=== PATIENT | male | born 1945 | race Caucasian/White ===

== ENCOUNTER 2016-06-27 09:36 | Outpatient (CLI) | payer MEDICARE, OTHER | END 2016-06-27 09:37 | disposition home or self-care (01) | DX: C61 Malignant neoplasm of prostate (principal); Z79.899 Other long term (current) drug therapy; R73.9 Hyperglycemia, unspecified; J44.9 Chronic obstructive pulmonary disease, unspecified; I10 Essential (primary) hypertension ==

== ENCOUNTER 2017-04-08 07:18 | Outpatient (CLI) | payer MEDICARE, OTHER ==
[2017-04-08] MEDS ORDERED: IOPAMIDOL-300 100 ML VIAL ONE (07:41)
[2017-04-08] MEDS ORDERED: IOPAMIDOL-300 50 ML VIAL ONE (07:41)
[2017-04-08] MEDS ORDERED: IOPAMIDOL-300 100 ML VIAL IVP ONE (10:21)
[2017-04-08] MEDS ORDERED: IOPAMIDOL-300 50 ML VIAL PO ONE (10:21)
--- NOTE | 2017-04-08 13:02 | CT Report ---
CT ABDOMEN AND PELVIS WITH CONTRAST: 04/08/2017 CLINICAL INDICATION: Right upper quadrant pain. TECHNIQUE: Axial CT images of the abdomen and pelvis were obtained with 100 mL Isovue-300 intravenou sly as well as oral contrast. In accordance with CT protocol optimization, one or more of the following dose reduction techniques w ere utilized for this exam: automated exposure control, adjustment of mA and/or KV based on patient size, or use of iterative reconstructive technique. FINDINGS: Limited evaluation of the lung bases demonstrates calcified hilar and mediastinal lymph no ronaldo. Abdomen: The liver, pancreas, and adrenal glands are unremarkable. A calcified granuloma is seen in the spleen. The gallbladder demonstrates dependent hyperdense material, which may represent sludge or small stones. The kidneys demonstrate cortical and parapelvic cysts. No nephrolithiasis or hydro nephrosis is present. No bowel dilatation, free gas, or free fluid is present. No abdominal adenopa thy is seen. Pelvis: Fiducial markers are seen around the prostate. No pelvic adenopathy or free fluid is presen t. Osseous structures demonstrate degenerative changes. IMPRESSION: POSSIBLE CHOLELITHIASIS OR HYPERDENSE SLUDGE WITHIN THE GALLBLADDER LUMEN. INCIDENTAL R ENAL CYSTS. JOB #: [id number] EXT JOB #:[id number]
== END 2017-04-08 07:19 | disposition home or self-care (01) ==
LOC: DI 07:18
PROVIDERS: ATTEND Internal Medicine
DX: R10.31 Right lower quadrant pain (principal)
CPT/HCPCS: 74177; Q9967

== ENCOUNTER 2017-07-25 09:36 | Outpatient (CLI) | payer MEDICARE, OTHER ==
[2017-07-25 10:11] LABS: BASOPHILS % (AUTO) 0.3 %; EOSINOPHILS # (AUTO) 0.1 10^3/uL (0.0-0.7); EOSINOPHILS % (AUTO) 2.3 %; HGB - HEMOGLOBIN 14.9 g/dL (14.0-18.0); LYMPHOCYTES # (AUTO) 1.4 10^3/uL (1.5-3.5); LYMPHOCYTES % (AUTO) 27.7 %; MEAN CORPUSCULAR HGB CONC 33.7 g/dL (32.0-36.0); MEAN CORPUSCULAR VOLUME 85.9 fL (80.0-94.0); MEAN PLATELET VOLUME 8.7 fL (7.4-11.4); MONOCYTES # (AUTO) 0.5 10^3/uL (0.0-1.0); MONOCYTES % (AUTO) 9.9 %; NEUTROPHILS % (AUTO) 59.8 %; PLT - PLATELET COUNT 219 10^3/uL (130-450); RED BLOOD COUNT 5.14 10^6/uL (4.70-6.10); RED CELL DISTRIBUTION WIDTH 13.7 % (12.0-15.0); WHITE BLOOD COUNT 5.1 x10^3/uL (4.8-10.8)
[2017-07-25 10:22] LABS: ALBUMIN/GLOBULIN RATIO 1.3 (1.0-2.2); ALKALINE PHOSPHATASE 53 IU/L (42-121); ALT ALANINE AMINOTRANSFERASE 16 IU/L (10-60); AST ASPARTATE AMINOTRANSFERASE 22 IU/L (10-42); BILIRUBIN,TOTAL 0.7 mg/dL (0.2-1.0); BUN - BLOOD UREA NITROGEN 17 mg/dL (6-20); CALCIUM 9.3 mg/dL (8.5-10.3); CARBON DIOXIDE - CO2 27 mmol/L (21-32); CHLORIDE 98 mmol/L (101-111); CHOL/HDL RATIO 3.4 (<5.0); CHOLESTEROL 209 mg/dL; CREATININE 1.2 mg/dL (0.6-1.2); GFR - MDRD 59 (>89); GLUCOSE 104 mg/dL (70-100); HDL CHOLESTEROL 61 mg/dL; LDL CHOLESTEROL,CALCULATED 126 mg/dL; LDL/HDL RATIO 2.1 (<3.6); SODIUM 136 mmol/L (135-145); TOTAL PROTEIN 7.1 g/dL (6.7-8.2); VLDL CHOLESTEROL 22 mg/dL
[2017-07-25 10:27] LABS: HEMOGLOBIN A1C 0.67 g/dL
== END 2017-07-25 09:37 | disposition home or self-care (01) ==
LOC: LAB 09:36
PROVIDERS: ATTEND Internal Medicine
DX: I10 Essential (primary) hypertension (principal); J44.9 Chronic obstructive pulmonary disease, unspecified; C61 Malignant neoplasm of prostate; Z79.899 Other long term (current) drug therapy; E87.6 Hypokalemia; R73.01 Impaired fasting glucose
CPT/HCPCS: 36415; 80053; 80061; 83036; 83721; 84443; 85025

== ENCOUNTER 2017-08-15 21:03 | Emergency (ER) | payer MEDICARE, OTHER ==
[2017-08-16 00:17] LABS: BILIRUBIN,URINE NEGATIVE (NEGATIVE); GLUCOSE, URINE (UA) NEGATIVE (NEGATIVE); KETONES,URINE (UA) NEGATIVE (NEGATIVE); LEUKOCYTE ESTERASE, URINE NEGATIVE (NEGATIVE); NITRITE,URINE NEGATIVE (NEGATIVE); OCCULT BLOOD,URINE MODERATE (NEGATIVE); PH,URINE 5.5 PH (5.0-7.5); PROTEIN,URINE NEGATIVE (NEGATIVE); UROBILINOGEN,URINE 0.2 (NORMAL) E.U./dL (NORMAL)
[2017-08-16 00:20] LABS: CLARITY,URINE CLEAR (CLEAR)
[2017-08-16 00:26] LABS: BACTERIA,URINE None Seen /HPF (None Seen); MUCUS,URINE Moderate Strands; SQUAMOUS EPITHELIAL CELL,UR NONE SEEN (<= Few)
--- NOTE | 2017-08-16 00:39 | ED Physician Documentation ---
PD HPI BACK PAIN - Stated complaint Stated Complaint: LOW BACK PX/RED FACE - Chief complaint Chief Complaint: Back Pain - History obtained from History obtained from: Patient - History of Present Illness Timing - onset: Chronic Timing - details: Gradual onset Pain level now: 8 Location: Lower, Right Quality: Pain, Similar to prior episodes Associated symptoms: No: Fever, Weakness, Numbness, Incontinent of urine, Unable to urinate, Hematuria, Incontinent of stool Improves with: Rest Worsened by: Movement Similar symptoms before: Diagnosis (has had pain in the same area for several months, but worse today. H/O bone lesion in this same area (right bony pelvis) that was subsequently biopsied and results led to diagnosis of metastatic prostate CA) Recently seen: Not recently seen - Additional information Additional information: chronic right low back and right bony pelvis pain which is worse over past 1-2 days without apparent precipitating event or injury Review of Systems Constitutional: denies: Fever, Chills, Sweats GI: denies: Abdominal Pain : denies: Dysuria, Frequency, Unable to Void, Incontinent Musculoskeletal: reports: Back pain, Pain with weight bearing Neurologic: denies: Focal weakness, Numbness PD PAST MEDICAL HISTORY - Past Medical History Past Medical History: Yes Cardiovascular: Hypertension, Murmur Respiratory: None Neuro: None Endocrine/Autoimmune: None GI: None : None HEENT: None Psych: None Musculoskeletal: None Derm: None Other Past Medical History: Prostate cancer - Past Surgical History Past Surgical History: Yes HEENT: Tonsil/Adenoidectomy - Present Medications Home Medications: Ambulatory Orders Medication Instructions Recorded Confirmed Calcium Carbonate/Vitamin D3 1 tab PO DAILY 01/02/16 06/10/17 [Calcium 600-Vit D3 400 Tablet] Potassium Chloride [K-Dur] 20 meq PO DAILY 01/02/16 06/10/17 Tamsulosin [Flomax] 0.4 mg PO DAILY 01/02/16 06/10/17 hydroCHLOROthiazide 25 mg PO DAILY 01/02/16 06/10/17 [Hydrochlorothiazide] oxyCODONE [Roxicodone] 5 mg PO Q6H PRN #14 tablet 08/16/17 - Allergies Allergies/Adverse Reactions: Allergies Allergy/AdvReac Type Severity Reaction Status Date / Time No Known Drug Allergies Allergy Verified 08/15/17 23:55 - Social History Does the pt smoke?: No Smoking Status: Never smoker Does the pt drink ETOH?: No Does the pt have substance abuse?: No - POLST Patient has POLST: No PD ED PE NORMAL - Vitals Vital signs reviewed: Yes - General General: Alert and oriented X 3, No acute distress (NAD at rest, appears uncomfortable (mild/moderate pain) with movement involving low back or standing) , Well developed/nourished - Back Back: No CVA TTP, No spinal TTP - Derm Derm: Normal color, Warm and dry - Extremities Extremities: No edema Results - Vitals Vitals: Oxygen O2 Source Room air - Labs Labs: Laboratory Tests 08/16/17 00:08 Urine Color YELLOW Urine Clarity CLEAR Urine pH 5.5 Ur Specific [place] 1.025 Urine Protein NEGATIVE Urine Glucose (UA) NEGATIVE Urine Ketones NEGATIVE Urine Occult Blood MODERATE H Urine Nitrite NEGATIVE Urine Bilirubin NEGATIVE Urine Urobilinogen 0.2 (NORMAL) Ur Leukocyte Esterase NEGATIVE Urine RBC 6-10 H Urine WBC 0-3 Ur Squamous Epith Cells NONE SEEN Urine Bacteria None Seen Urine Mucus Moderate Strands Ur Microscopic Review INDICATED Urine Culture Comments NOT INDICATED - Rads (name of study) pelvis xray Radiology: Prelim report reviewed, See rad report PD MEDICAL DECISION MAKING - ED course Complexity details: reviewed results, re-evaluated patient, considered differential, d/w patient Departure - Departure Disposition: 01 Home, Self Care Clinical Impression: Back pain Condition: Good Instructions: NARCOTIC, Oral, ED Acute Pain [facility] Follow-Up: Gretchen Cedeno MD [Primary Care Provider] - Prescriptions: oxyCODONE [Roxicodone] 5 mg PO Q6H PRN #14 tablet PRN Reason: Pain Discharge Date/Time: 08/16/17 02:31
[2017-08-16] MEDS ORDERED: HYDROmorphone 1 MG/ML CARPUJECT IM STA (00:54)
[2017-08-16 01:43] VITALS: BP 96/49
--- NOTE | 2017-08-16 02:08 | XRAY Report ---
EXAM: PELVIS RADIOGRAPHY EXAM DATE: 08/16/2017 01:01 AM. CLINICAL HISTORY: Right bony pelvic pain. COMPARISON: None. TECHNIQUE: 1 view. FINDINGS: Bones: No fracture seen. No focal area of bone destruction. Joints: No dislocation seen. Joints are relatively well preserved for age. Soft Tissues: Small metallic densities in the area of the prostate. IMPRESSION: 1. No acute abnormality seen in the pelvis. [facility] Referring Provider Line: [phone] SITE ID: [id number]
--- NOTE | 2017-08-16 02:08 | XRAY Preliminary Report ---
Exam: XR PELVIS 1 VIEW IMPRESSION: 1. No acute abnormality seen in the pelvis. [facility] SITE ID: [id number]
== END 2017-08-16 02:31 | disposition home or self-care (01) ==
LOC: ED 21:03
DX: M54.9 Dorsalgia, unspecified (principal); C61 Malignant neoplasm of prostate; I10 Essential (primary) hypertension
CPT/HCPCS: 72170; 81001; 96372; 99283; J1170; 81003; 87086

== ENCOUNTER 2017-08-20 10:57 | Day surgery (SDC) | payer MEDICARE, OTHER ==
[2017-08-20] MEDS ORDERED: LACTATED RINGERS 1,000 ML IV ONE (11:55)
[2017-08-20] MEDS ORDERED: BENZOCAINE/TETRACAINE/BUTAMBEN SPRAY 56 GM TOP ONE (12:56)
[2017-08-20] MEDS ORDERED: fentaNYL 100 MCG/2 ML VIAL IVP ONE (13:05)
[2017-08-20] MEDS ORDERED: MIDAZOLAM 2 MG/2 ML VIAL IVP ONE (13:05)
[2017-08-20 13:54] VITALS: BP 132/76
== END 2017-08-20 10:58 | disposition home or self-care (01) ==
LOC: SDS 10:57
PROVIDERS: ATTEND Surgery
PROC: 0DB68ZX Excision of Stomach, Via Natural or Artificial Opening Endoscopic, Diagnostic (ICD-10-PCS; 2017-08-20)
PROC: 0DB38ZX Excision of Lower Esophagus, Via Natural or Artificial Opening Endoscopic, Diagnostic (ICD-10-PCS; 2017-08-20)
PROC: 0DB98ZX Excision of Duodenum, Via Natural or Artificial Opening Endoscopic, Diagnostic (ICD-10-PCS; principal; 2017-08-20 12:15)
DX: R10.13 Epigastric pain (principal); K44.9 Diaphragmatic hernia without obstruction or gangrene; I10 Essential (primary) hypertension; Z87.891 Personal history of nicotine dependence
CPT/HCPCS: 43239; A9270; J7120

== ENCOUNTER 2017-08-23 20:27 | Inpatient (IN) | payer MEDICARE, OTHER ==
[2017-08-23] MEDS ORDERED: MORPHINE 10 MG/ML VIAL IVP STA (21:22)
[2017-08-23] MEDS ORDERED: SODIUM CHLORIDE 0.9% 1,000 ML IV ONE (21:22)
[2017-08-23] MEDS ORDERED: ONDANSETRON 4 MG/2 ML VIAL IVP STA (21:48)
--- NOTE | 2017-08-23 21:48 | ED Physician Documentation ---
History of Present Illness - Stated complaint Stated Complaint: NAUSEA/LOWER BACK PAIN - Chief complaint Chief Complaint: Abd Pain - History obtained from History obtained from: Patient, Family - History of Present Illness Timing: Today - Additonal information Additional information: Patient is a 72 year old male with a history of metastatic prostate CA who is presenting to the emergency department for low back pain, nausea, fever of 102. Patient is not on chemotherapy but every 3-4 months he gets hormone therapy. Patient also recently had an upper endoscopy that revealed a hiatal hernia and gastritis. Patient denies any vomiting at this time. Review of Systems Constitutional: reports: Fever, Myalgias Eyes: reports: Reviewed and negative Ears: reports: Reviewed and negative Nose: reports: Reviewed and negative Throat: reports: Reviewed and negative Cardiac: denies: Chest pain / pressure, Palpitations Respiratory: reports: Dyspnea, Cough GI: reports: Nausea. denies: Vomiting, Constipation, Diarrhea : reports: Hesitancy Skin: denies: Rash, Lesions Musculoskeletal: reports: Back pain. denies: Neck pain, Extremity pain Neurologic: reports: Generalized weakness. denies: Focal weakness Immunocompromised: denies: Immunocompromised PD PAST MEDICAL HISTORY - Past Medical History Past Medical History: Yes Cardiovascular: Hypertension, Murmur Respiratory: None Neuro: None Endocrine/Autoimmune: None GI: GERD : Other HEENT: None Psych: None Musculoskeletal: Chronic back pain Derm: None Other Past Medical History: Prostate cancer - Past Surgical History Past Surgical History: Yes General: EGD, Other HEENT: Tonsil/Adenoidectomy - Present Medications Home Medications: Ambulatory Orders Medication Instructions Recorded Confirmed Calcium Carbonate/Vitamin D3 1 tab PO DAILY 01/02/16 08/20/17 [Calcium 600-Vit D3 400 Tablet] Potassium Chloride [K-Dur] 20 meq PO DAILY 01/02/16 08/20/17 Tamsulosin [Flomax] 0.4 mg PO DAILY 01/02/16 08/20/17 hydroCHLOROthiazide 25 mg PO DAILY 01/02/16 08/20/17 [Hydrochlorothiazide] oxyCODONE [Roxicodone] 5 mg PO Q6H PRN #14 tablet 08/16/17 08/20/17 - Allergies Allergies/Adverse Reactions: Allergies Allergy/AdvReac Type Severity Reaction Status Date / Time No Known Drug Allergies Allergy Verified 08/19/17 14:42 - Social History Does the pt smoke?: No Smoking Status: Never smoker Does the pt drink ETOH?: No Does the pt have substance abuse?: No - Immunizations Immunizations are current?: Yes - POLST Patient has POLST: No PD ED PE NORMAL - Vitals Vital signs reviewed: Yes - General General: Alert and oriented X 3 - HEENT HEENT: Atraumatic - Neck Neck: No JVD - Cardiac Cardiac: RRR - Abdomen Abdomen: Soft - Derm Derm: Normal color PD ED PE EXPANDED - General General: Alert - HEENT HEENT: Dry mucous membranes - Respiratory Respiratory: Decreased breath sounds, Right lower lobe, Left lower lobe - Back Back: Soft tissue tenderness - Extremities Extremities: No: Pedal edema bilateral Results - Vitals Vitals: Vital Signs - 24 hr 08/23/17 20:34 Temperature 36.7 C Heart Rate 97 Respiratory 18 Rate Blood Pressure 127/76 O2 Saturation 94 Oxygen O2 Source Room air - Labs Labs: Laboratory Tests 08/23/17 08/23/17 08/23/17 21:35 21:40 21:40 WBC 8.8 RBC 4.39 L Hgb 12.7 L Hct 36.7 L MCV 83.5 MCH 28.9 MCHC 34.7 RDW 13.3 Plt Count 271 MPV 7.9 Neut # 7.1 H Lymph # 0.5 L [place] # 1.2 H Eos # 0.0 Baso # 0.0 Absolute Nucleated RBC 0.00 Nucleated RBC % 0.0 Sodium 125 L Potassium 2.8 L Chloride 86 L Carbon Dioxide 28 Anion Gap 11.0 BUN 10 Creatinine 1.0 Estimated GFR (MDRD) 73 L Glucose 119 H Lactic Acid Calcium 7.5 L Total Bilirubin 0.8 AST 30 ALT 20 Alkaline Phosphatase 66 Total Protein 6.7 Albumin 2.9 L Globulin 3.8 Albumin/Globulin Ratio 0.8 L Lipase 20 L Urine Color YELLOW Urine Clarity HAZY Urine pH 6.5 Ur Specific [place] 1.015 Urine Protein TRACE Urine Glucose (UA) NEGATIVE Urine Ketones 40 H Urine Occult Blood LARGE H Urine Nitrite NEGATIVE Urine Bilirubin NEGATIVE Urine Urobilinogen 1 (NORMAL) Ur Leukocyte Esterase NEGATIVE Urine RBC 6-10 H Urine WBC 0-3 Ur Squamous Epith Cells RARE Squamous Urine Bacteria Rare Urine Mucus Few Strands Ur Microscopic Review INDICATED Urine Culture Comments NOT INDICATED Influenza A (Rapid) Influenza B (Rapid) Influenza Types A,B Ag 08/23/17 08/23/17 21:40 21:50 WBC RBC Hgb Hct MCV MCH MCHC RDW Plt Count MPV Neut # Lymph # [place] # Eos # Baso # Absolute Nucleated RBC Nucleated RBC % Sodium Potassium Chloride Carbon Dioxide Anion Gap BUN Creatinine Estimated GFR (MDRD) Glucose Lactic Acid 1.2 Calcium Total Bilirubin AST ALT Alkaline Phosphatase Total Protein Albumin Globulin Albumin/Globulin Ratio Lipase Urine Color Urine Clarity Urine pH Ur Specific [place] Urine Protein Urine Glucose (UA) Urine Ketones Urine Occult Blood Urine Nitrite Urine Bilirubin Urine Urobilinogen Ur Leukocyte Esterase Urine RBC Urine WBC Ur Squamous Epith Cells Urine Bacteria Urine Mucus Ur Microscopic Review Urine Culture Comments Influenza A (Rapid) Negative Influenza B (Rapid) Negative Influenza Types A,B Ag - - Rads (name of study) chest x-ray Radiology: Final report received (right sided infiltrate) PD MEDICAL DECISION MAKING - ED course Complexity details: reviewed old records, reviewed results, re-evaluated patient , considered differential, d/w patient, d/w family ED course: Patient was seen and examined at bedside. IV access was gained, labs were drawn including cultures. urine was collected. chest x-ray was performed and showed a right sided pneumonia. Patient had an elevated pneumonia severity index score and required inpatient admission. Patient was started on rocephin and azithromycin. Case was discussed with the hospitalist and patient was admitted for further evaluation and care. Departure - Departure Disposition: [facility] DC/Xfda Clinical Impression: Pneumonia Condition: Stable Discharge Date/Time: 08/23/17 23:27
[2017-08-23 21:59] LABS: BASOPHILS % (AUTO) 0.3 %; HGB - HEMOGLOBIN 12.7 g/dL (14.0-18.0); LYMPHOCYTES # (AUTO) 0.5 10^3/uL (1.5-3.5); LYMPHOCYTES % (AUTO) 5.8 %; MEAN CORPUSCULAR HEMOGLOBIN 28.9 pg (27.0-31.0); MEAN CORPUSCULAR HGB CONC 34.7 g/dL (32.0-36.0); MEAN CORPUSCULAR VOLUME 83.5 fL (80.0-94.0); MEAN PLATELET VOLUME 7.9 fL (7.4-11.4); MONOCYTES # (AUTO) 1.2 10^3/uL (0.0-1.0); MONOCYTES % (AUTO) 13.2 %; NEUTROPHILS # (AUTO) 7.1 10^3/uL (1.5-6.6); NEUTROPHILS % (AUTO) 80.7 %; PLT - PLATELET COUNT 271 10^3/uL (130-450); RED BLOOD COUNT 4.39 10^6/uL (4.70-6.10); RED CELL DISTRIBUTION WIDTH 13.3 % (12.0-15.0); WHITE BLOOD COUNT 8.8 x10^3/uL (4.8-10.8)
[2017-08-23 22:09] LABS: CLARITY,URINE HAZY (CLEAR); GLUCOSE, URINE (UA) NEGATIVE (NEGATIVE); KETONES,URINE (UA) 40 mg/dL (NEGATIVE); LEUKOCYTE ESTERASE, URINE NEGATIVE (NEGATIVE); NITRITE,URINE NEGATIVE (NEGATIVE); OCCULT BLOOD,URINE LARGE (NEGATIVE); PH,URINE 6.5 PH (5.0-7.5); PROTEIN,URINE TRACE mg/dL (NEGATIVE); UROBILINOGEN,URINE 1 (NORMAL) E.U./dL (NORMAL)
[2017-08-23 22:10] LABS: BILIRUBIN,URINE NEGATIVE (NEGATIVE); ICTOTEST,URINE NEGATIVE
[2017-08-23 22:12] LABS: BACTERIA,URINE Rare /HPF (None Seen); MUCUS,URINE Few Strands; SQUAMOUS EPITHELIAL CELL,UR RARE Squamous (<= Few)
[2017-08-23 22:14] LABS: ALBUMIN 2.9 g/dL (3.2-5.5); ALBUMIN/GLOBULIN RATIO 0.8 (1.0-2.2); BILIRUBIN,TOTAL 0.8 mg/dL (0.2-1.0); CALCIUM 7.5 mg/dL (8.5-10.3); TOTAL PROTEIN 6.7 g/dL (6.7-8.2)
--- NOTE | 2017-08-23 22:15 | XRAY Report ---
EXAM: CHEST RADIOGRAPHY EXAM DATE: 08/23/2017 10:02 PM. CLINICAL HISTORY: Fever, abd pain. COMPARISON: None. TECHNIQUE: 1 view. FINDINGS: Lungs/Pleura: Patchy infiltration in the right base with possible involvement of lateral left base. N o consolidation, effusion, or pneumothorax. Mediastinum: Within exam limitations, the cardiomediastinal contour is normal. Other: Degenerative changes. IMPRESSION: Right basilar infiltrate with possible involvement of the left base. [facility] Referring Provider Line: [phone] SITE ID: [id number]
[2017-08-23] MEDS ORDERED: cefTRIAXone 1 GM in SODIUM CHLORIDE 0.9% MINIBAG 100 ML IV STA (22:30)
[2017-08-23] MEDS ORDERED: AZITHROMYCIN INJ 500 MG in SODIUM CHLORIDE 0.9% 250 ML IV STA (22:30)
[2017-08-23] MEDS ORDERED: oxyCODONE 5 MG TABLET PO PRN ×2 (22:55)
[2017-08-23] MEDS ORDERED: ACETAMINOPHEN 325 MG TABLET PO PRN (22:55)
[2017-08-23] MEDS ORDERED: PROMETHAZINE 25 MG/1 ML VIAL IM PRN (22:55)
[2017-08-23] MEDS ORDERED: SODIUM CHLORIDE FLUSH 0.9% 10 ML SYRINGE IVP PRN (22:55)
[2017-08-23] MEDS ORDERED: ONDANSETRON 4 MG/2 ML VIAL IVP PRN (22:55)
[2017-08-23] MEDS ORDERED: ZOLPIDEM 5 MG TABLET PO PRN (22:55)
[2017-08-23] MEDS ORDERED: MORPHINE 2 MG/ML SYRINGE IVP PRN (22:55)
[2017-08-23] MEDS ORDERED: PROCHLORPERAZINE 10 MG/2 ML VIAL IVP PRN (22:55)
[2017-08-23] MEDS ORDERED: POTASSIUM CHLORIDE 20 MEQ TABLET PO SCH (22:59)
[2017-08-24] MEDS: NS W/20 MEQ KCL 1,000 ML IV SCH ×3 (00:36→20:46)
--- NOTE | 2017-08-24 00:43 | HISTORY & PHYSICAL EXAMINATION ---
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 The patient states he was in his normal state of health until the last few days when he has been having increasing low back pain with some mild shortness of breath and mild cough. Today the patient states that he was nauseated and when his checked his temperature he had a fever of 102 Fahrenheit. The patient states that he has been having some issues with his stomach and has had nausea for which he has been worked up by surgery as an outpatient. He recently had a EGD a few days ago which showed the patient has duodenitis but was otherwise negative. The patient denies any chest pain, orthopnea, PND, increased lower extremity swelling or any night sweats. The patient has not been around any sick contacts. The patient was given Tylenol at home by his after he was found to have fever. The patient denies any headaches, blurred vision, runny nose, sore throat, nasal congestion, diarrhea, constipation, urinary frequency, dysuria, muscle aches, joint swelling, recent unintentional weight loss, changes in his appetite , skin rashes or hair loss, neck stiffness, difficulty swallowing or any focal neurologic deficits. On presentation to the emergency department the patient was afebrile, tachycardic with a heart rate of 97 and oxygen saturation was 94% on room air but patient did not appear to be in any respiratory distress nor was he tachypneic. The patient underwent routine lab work which showed no evidence of leukocytosis however patient was hypo-treatment with a sodium of 125 and hypokalemic with a potassium of 2.8. The patient's influenza swab was negative and his urine analysis showed large occult blood and RBCs but was negative for infection. The patient underwent a chest x-ray which revealed a significant right basilar infiltrate with possible involvement of the left base. Given the patient's history of metastatic disease, age, hyponatremia and pneumonia severity index score the patient was admitted to the [facility] for treatment of community-acquired pneumonia. History - Past Medical History Cardiovascular: reports: Hypertension, Murmur Respiratory: reports: None Neuro: reports: None Endocrine/Autoimmune: reports: None GI: reports: GERD : reports: Other HEENT: reports: None Psych: reports: None Musculoskeletal: reports: Chronic back pain Derm: reports: None MRSA Hx?: No Other Past Medical History: Prostate cancer - Past Surgical History General: reports: EGD, Other HEENT: reports: Tonsil/Adenoidectomy - Family & Social History Family History: Mother: (Father of heart attack at the age of 75, mother at the age of 95 of complications from surgery of bowel obstruction) , [place], Father: , Other family: Cancer (Patient's son had AML) Living arrangement: At home Living Situation: With spouse/s.o. Social History Notes: The patient lives in [place], [place] with his . He has been to his for 54 years. The patient is originally from the [facility]. 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 The patient had 3 sons 1 of whom of AML the other 2 are still alive and live in the [facility]. The patient does not smoke cigarettes, he does not drink alcohol and he denies any illicit drug use. - POLST Patient has POLST: No POLST Status: Full Code Meds/Allgy - Home Medications Home Medications: Ambulatory Orders Medication Instructions Recorded Confirmed Calcium Carbonate/Vitamin D3 1 tab PO DAILY 01/02/16 08/20/17 [Calcium 600-Vit D3 400 Tablet] Potassium Chloride [K-Dur] 20 meq PO DAILY 01/02/16 08/20/17 Tamsulosin [Flomax] 0.4 mg PO DAILY 01/02/16 08/20/17 hydroCHLOROthiazide 25 mg PO DAILY 01/02/16 08/20/17 [Hydrochlorothiazide] oxyCODONE [Roxicodone] 5 mg PO Q6H PRN #14 tablet 08/16/17 08/20/17 - Allergies Allergies/Adverse Reactions: Allergies Allergy/AdvReac Type Severity Reaction Status Date / Time No Known Drug Allergies Allergy Verified 08/19/17 14:42 Review of Systems - Other Findings Other Findings: A comprehensive review of systems was performed the pertinent positives and negatives are stated above in the HPI and the remainder of the review of systems is negative. Exam - Vital Signs Reviewed Vital Signs: Yes Vital Signs: Vital Signs x48h Temp Pulse Resp BP Pulse Ox 08/23/17 23:39 37.2 C 71 20 119/63 95 08/23/17 23:15 88 18 110/65 98 - Physical Exam General Appearance: positive: No acute distress, Alert, Other (Mildly confused) Eyes Bilateral: positive: Normal inspection, PERRL, EOMI, No lid inflammation, Conjunctivae nml, No scleral icterus ENT: positive: ENT inspection nml, Pharynx nml, Dry mucous membranes. negative : Purulent nasal drainage, Pharyngeal erythema, Oral lesions Neck: positive: Nml inspection, Thyroid nml, No JVD, Trachea midline. negative : Thyromegaly, Lymphadenopathy (R), Lymphadenopathy (L), Stiff neck, Carotid bruit, Tracheal deviation Respiratory: positive: Chest non-tender, No respiratory distress, Rhonchi ( Right lower lung). negative: Wheezes, Rales Cardiovascular: positive: Regular rate & rhythm, No murmur, No gallop Peripheral Pulses: positive: 2+ Abdomen: positive: Non-tender, No organomegaly, Nml bowel sounds, No distention. negative: Guarding, Rebound, Hepatomegaly Back: positive: Nml inspection. negative: CVA tenderness (R), CVA tenderness (L ) Skin: positive: Color nml, No rash, Warm, Dry. negative: Cyanosis, Diaphoresis , Pallor, Skin rash Extremities: positive: Non-tender, Full ROM, Nml appearance, No pedal edema Neurologic/Psychiatric: positive: CN's nml (2-12), Motor nml, Sensation nml, Mood/affect nml, Disoriented to time Conclusion/Plan - Problem List (1) CAP (community acquired pneumonia) Conclusion/Plan: Patient presented to the emergency department secondary to fever at home. Patient is also been having some mild shortness of breath and cough. Recently the patient has been having issues of abdominal discomfort and nausea that have been ongoing for months and he is recently been seen by surgery for an EGD which revealed duodenitis but no other significant abnormalities. On presentation the patient had stable vital signs but did appear to be slightly dry and given his fever underwent a chest x-ray which revealed a right basilar infiltrate suggesting pneumonia. According to the pneumonia severity index the patient scored 124 points which put him at risk class IV with a 8.2 to 9.3% mortality. And hospitalization was recommended based on this risk. Plan: Patient was started on IV ceftriaxone and azithromycin for treatment of community acquired pneumonia Patient will be given IV fluids given his hyponatremia and the fact he appears to be dehydrated We will give the patient supplementary oxygen as needed Patient will likely need 1-2 days of IV antibiotics before he can be switched to oral antibiotics and discharged home. We will follow up on patient's blood cultures Qualifiers: Laterality: right Lung location: lower lobe of lung Qualified Code(s): J18.1 - Lobar pneumonia, unspecified organism (2) Hyponatremia Conclusion/Plan: Patient has hyponatremia in the setting of pneumonia and appears to be dry on examination. Patient likely has hypovolemic hyponatremia and will be given IV fluids. We will monitor the patient's sodium Hydrochlorothiazide could also be contributing to the hyponatremia therefore it will be held. (3) Hypokalemia Conclusion/Plan: The patient's potassium on presentation is 2.8 this is likely secondary to dehydration and persistent nausea which the patient has been dealing with for some time now. The patient will be given supplemental potassium orally and IV. We will monitor the patient's potassium and continue to replace potassium as needed. (4) Hypertension Conclusion/Plan: The patient does have hypertension and takes hydrochlorothiazide for hypertension. The patient's blood pressure appears to be well controlled on presentation and given that the patient is hyponatremic we will hold his hydrochlorothiazide and monitor his blood pressure while he is hospitalized. We will restart the hydrochlorothiazide if needed. Qualifiers: Hypertension type: essential hypertension Qualified Code(s): I10 - Essential (primary) hypertension (5) Prostate cancer metastatic to bone Conclusion/Plan: Patient has history of prostate cancer with metastasis to the bone. Patient does have chronic pain from the bone metastasis and takes oxycodone at home. While the patient is hospitalized here we will continue his home dose of oxycodone. The patient will follow up outpatient for further treatment for his prostate cancer. - Lab Results Lab results reviewed: Yes Fish Bones: 08/23/17 21:40 08/23/17 21:40 Other Lab Results: Laboratory Results WBC 8.8 x10^3/uL (4.8-10.8) 08/23/17 21:40 RBC 4.39 10^6/uL (4.70-6.10) L 08/23/17 21:40 Hgb 12.7 g/dL (14.0-18.0) L 08/23/17 21:40 Hct 36.7 % (42.0-52.0) L 08/23/17 21:40 MCV 83.5 fL (80.0-94.0) 08/23/17 21:40 MCH 28.9 pg (27.0-31.0) 08/23/17 21:40 MCHC 34.7 g/dL (32.0-36.0) 08/23/17 21:40 RDW 13.3 % (12.0-15.0) 08/23/17 21:40 Plt Count 271 10^3/uL (130-450) 08/23/17 21:40 MPV 7.9 fL (7.4-11.4) 08/23/17 21:40 Neut # 7.1 10^3/uL (1.5-6.6) H 08/23/17 21:40 Lymph # 0.5 10^3/uL (1.5-3.5) L 08/23/17 21:40 [place] # 1.2 10^3/uL (0.0-1.0) H 08/23/17 21:40 Eos # 0.0 10^3/uL (0.0-0.7) 08/23/17 21:40 Baso # 0.0 10^3/uL (0.0-0.1) 08/23/17 21:40 Absolute Nucleated RBC 0.00 x10^3/uL 08/23/17 21:40 Nucleated RBC % 0.0 /100WBC 08/23/17 21:40 Sodium 125 mmol/L (135-145) L 08/23/17 21:40 Potassium 2.8 mmol/L (3.5-5.0) L 08/23/17 21:40 Chloride 86 mmol/L (101-111) L 08/23/17 21:40 Carbon Dioxide 28 mmol/L (21-32) 08/23/17 21:40 Anion Gap 11.0 (6-13) 08/23/17 21:40 BUN 10 mg/dL (6-20) 08/23/17 21:40 Creatinine 1.0 mg/dL (0.6-1.2) 08/23/17 21:40 Estimated GFR (MDRD) 73 (>89) L 08/23/17 21:40 Glucose 119 mg/dL (70-100) H 08/23/17 21:40 Lactic Acid 1.2 mmol/L (0.5-2.2) 08/23/17 21:40 Calcium 7.5 mg/dL (8.5-10.3) L 08/23/17 21:40 Total Bilirubin 0.8 mg/dL (0.2-1.0) 08/23/17 21:40 AST 30 IU/L (10-42) 08/23/17 21:40 ALT 20 IU/L (10-60) 08/23/17 21:40 Alkaline Phosphatase 66 IU/L (42-121) 08/23/17 21:40 Total Protein 6.7 g/dL (6.7-8.2) 08/23/17 21:40 Albumin 2.9 g/dL (3.2-5.5) L 08/23/17 21:40 Globulin 3.8 g/dL (2.1-4.2) 08/23/17 21:40 Albumin/Globulin Ratio 0.8 (1.0-2.2) L 08/23/17 21:40 Lipase 20 U/L (22-51) L 08/23/17 21:40 Urine Color YELLOW 08/23/17 21:35 Urine Clarity HAZY (CLEAR) 08/23/17 21:35 Urine pH 6.5 PH (5.0-7.5) 08/23/17 21:35 Ur Specific [place] 1.015 (1.002-1.030) 08/23/17 21:35 Urine Protein TRACE mg/dL (NEGATIVE) 08/23/17 21:35 Urine Glucose (UA) NEGATIVE mg/dL (NEGATIVE) 08/23/17 21:35 Urine Ketones 40 mg/dL (NEGATIVE) H 08/23/17 21:35 Urine Occult Blood LARGE (NEGATIVE) H 08/23/17 21:35 Urine Nitrite NEGATIVE (NEGATIVE) 08/23/17 21:35 Urine Bilirubin NEGATIVE (NEGATIVE) 08/23/17 21:35 Urine Urobilinogen 1 (NORMAL) E.U./dL (NORMAL) 08/23/17 21:35 Ur Leukocyte Esterase NEGATIVE (NEGATIVE) 08/23/17 21:35 Urine RBC 6-10 /HPF (0-5) H 08/23/17 21:35 Urine WBC 0-3 /HPF (0-3) 08/23/17 21:35 Ur Squamous Epith Cells RARE Squamous (<= Few) 08/23/17 21:35 Urine Bacteria Rare /HPF (None Seen) 08/23/17 21:35 Urine Mucus Few Strands 08/23/17 21:35 Ur Microscopic Review INDICATED 08/23/17 21:35 Urine Culture Comments NOT INDICATED 08/23/17 21:35 Influenza A (Rapid) Negative (Negative) 08/23/17 21:50 Influenza B (Rapid) Negative (Negative) 08/23/17 21:50 Influenza Types A,B Ag - 08/23/17 21:50 - Diagnostic Imaging Results Diagnostic Imaging Results: positive: Final report reviewed Diagnostic Imaging Results Comments: Chest x-ray Impression: 1. Right basilar infiltrate with possible involvement of the left base. Core Measures - Anticipated LOS I expect patient to be DC'd or transferred within 96 hours.: Yes - Issues Hospital Issues and Management Plan: Patient was seen and examined on 08/23/2017 this is a late entry history and physical. - DVT/VTE - Prophylaxis VTE/DVT Prophylaxis med ordered at admit?: Yes
[2017-08-24] MEDS: SODIUM CHLORIDE FLUSH 0.9% 10 ML SYRINGE IVP SCH ×3 (00:57→17:24)
[2017-08-24 05:14] LABS: BASOPHILS % (AUTO) 0.4 %; EOSINOPHILS % (AUTO) 0.2 %; HGB - HEMOGLOBIN 12.3 g/dL (14.0-18.0); LYMPHOCYTES # (AUTO) 0.7 10^3/uL (1.5-3.5); LYMPHOCYTES % (AUTO) 7.9 %; MEAN CORPUSCULAR HEMOGLOBIN 28.5 pg (27.0-31.0); MEAN CORPUSCULAR HGB CONC 33.9 g/dL (32.0-36.0); MEAN CORPUSCULAR VOLUME 84.2 fL (80.0-94.0); MEAN PLATELET VOLUME 7.6 fL (7.4-11.4); MONOCYTES # (AUTO) 1.2 10^3/uL (0.0-1.0); MONOCYTES % (AUTO) 13.8 %; NEUTROPHILS % (AUTO) 77.7 %; PLT - PLATELET COUNT 251 10^3/uL (130-450); RED BLOOD COUNT 4.32 10^6/uL (4.70-6.10); RED CELL DISTRIBUTION WIDTH 13.5 % (12.0-15.0)
[2017-08-24 05:32] LABS: CALCIUM 7.1 mg/dL (8.5-10.3); CREATININE 1.1 mg/dL (0.6-1.2)
[2017-08-24] MEDS: ALBUTEROL NEB 2.5 MG/3 ML INH PRN (08:05)
[2017-08-24] MEDS ORDERED: POTASSIUM CHLORIDE 20 MEQ TABLET PO ONE (08:15)
[2017-08-24] MEDS: SACCHAROMYCES BOULARDII 250 MG CAPSULE PO SCH ×2 (08:26→17:24)
[2017-08-24] MEDS: TAMSULOSIN 0.4 MG CAPSULE PO SCH (08:27)
[2017-08-24] MEDS: ENOXAPARIN 40 MG/0.4 ML SYRINGE SUBQ SCH (08:27)
[2017-08-24] MEDS: CALCIUM CARB (OYSTER SHELL) 500 MG TABLET PO SCH (08:27)
[2017-08-24] MEDS: CHOLECALCIFEROL 400 UNIT TABLET PO SCH (08:27)
[2017-08-24] MEDS: POLYETHYLENE GLYCOL 3350 17 GM PACKET PO SCH (08:27)
[2017-08-24] MEDS: FAMOTIDINE 20 MG TABLET PO SCH (08:27)
[2017-08-24] MEDS: POTASSIUM CHLORIDE 20 MEQ TABLET PO SCH (08:29)
--- NOTE | 2017-08-24 11:52 | PROVIDER PROGRESS NOTE ---
Subjective - Prog Note Date Prog Note Date: 08/24/17 - Subjective Pt reports feeling: Improved Subjective: pt state he feel better, no complaints. No fever, chill, CP, SOB, cough. Current Medications - Current Medications Current Medications: Active Medications Acetaminophen (Tylenol) 650 mg PO Q4HR PRN PRN Reason: Pain 1 to 4 Albuterol () 2.5 mg INH Q4HR PRN PRN Reason: Wheezing Last Admin: 08/24/17 08:05 Dose: 2.5 mg Calcium Carbonate/Glycine (Oysco-500) 500 mg PO DAILY [facility] Last Admin: 08/24/17 08:27 Dose: 500 mg Cholecalciferol (Vitamin D3) 400 unit PO DAILY [facility] Last Admin: 08/24/17 08:27 Dose: 400 unit Enoxaparin Sodium (Lovenox) 40 mg SUBQ DAILY [facility] Last Admin: 08/24/17 08:27 Dose: 40 mg Famotidine (Pepcid) 20 mg PO DAILY [facility] Last Admin: 08/24/17 08:27 Dose: 20 mg Azithromycin 500 mg/ Sodium (Chloride) 250 mls @ 250 mls/hr IV Q24H [facility] Ceftriaxone Sodium 2 gm/ (Sodium Chloride) 100 mls @ 200 mls/hr IV HS [facility] Potassium Chloride/Sodium Chloride (Normal Saline 0.9% W/20 Meq Kcl) 1,000 mls @ 100 mls/hr IV .Q10H [facility] Last Admin: 08/24/17 10:30 Dose: 100 mls/hr Morphine Sulfate (Morphine) 2 mg IVP Q2H PRN PRN Reason: Pain 8 to 10 Ondansetron HCl (Zofran Inj) 4 mg IVP Q6HR PRN PRN Reason: Nausea / Vomiting Oxycodone HCl (Roxicodone) 5 mg PO Q4HR PRN PRN Reason: Pain 5 to 7 Oxycodone HCl (Roxicodone) 10 mg PO Q4HR PRN PRN Reason: Pain 8 to 10 Polyethylene Glycol (Miralax) 17 gm PO DAILY [facility] Last Admin: 08/24/17 08:27 Dose: 17 gm Potassium Chloride (K-Dur) 20 meq PO DAILY [facility] Last Admin: 08/24/17 08:29 Dose: 20 meq Prochlorperazine Edisylate (Compazine Inj) 10 mg IVP Q6HR PRN PRN Reason: Nausea / Vomiting Promethazine HCl (Phenergan Inj) 25 mg IM Q6HR PRN PRN Reason: Nausea / Vomiting Saccharomyces Boulardii (Florastor) 250 mg PO BIDWM [facility] Last Admin: 08/24/17 08:26 Dose: 250 mg Sodium Chloride (Normal Saline Flush 0.9%) 10 ml IVP PRN PRN PRN Reason: NEEDED PER PROVIDER ORDERS Sodium Chloride (Normal Saline Flush 0.9%) 10 ml IVP 0100,0900,1700 [facility] Last Admin: 08/24/17 08:38 Dose: Not Given Tamsulosin HCl (Flomax) 0.4 mg PO DAILY [facility] Last Admin: 08/24/17 08:27 Dose: 0.4 mg Zolpidem Tartrate (Ambien) 5 mg PO QPM PRN PRN Reason: Insomnia Calcium Carbonate/Vitamin D3 [Calcium 600-Vit D3 400 Tablet] 1 tab PO DAILY Potassium Chloride [K-Dur] 20 meq PO DAILY 01/02/16 Tamsulosin [Flomax] 0.4 mg PO DAILY 01/02/16 hydroCHLOROthiazide [Hydrochlorothiazide] 25 mg PO DAILY 01/02/16 Objective - Vital Signs/Intake & Output Reviewed Vital Signs: Yes Vital Signs: Vital Signs x48h Temp Pulse Pulse Resp BP Pulse Ox 08/24/17 08:06 82 20 08/24/17 07:25 37.2 C 73 19 96/58 L 93 Intake & Output: Intake & Output 08/21/17 08/22/17 08/23/17 08/24/17 23:59 23:59 23:59 23:59 Intake Total 100 2300 Balance 100 2300 - Objective General Appearance: positive: No acute distress, Alert. negative: Lethargic Eyes Bilateral: positive: Normal inspection, PERRL, No lid inflammation, Conjunctivae nml ENT: positive: ENT inspection nml, Pharynx nml, No signs of dehydration. negative: Purulent nasal drainage, Pharyngeal erythema, Oral lesions Neck: positive: Nml inspection, Thyroid nml, No JVD, Trachea midline. negative : Thyromegaly, Lymphadenopathy (R), Lymphadenopathy (L), Stiff neck, Carotid bruit, Swelling/bruising, Tracheal deviation Respiratory: positive: Chest non-tender, No respiratory distress, Breath sounds nml. negative: Wheezes, Rales, Rhonchi Cardiovascular: positive: Regular rate & rhythm, No murmur, No gallop. negative : Irregularly irregular, Extrasystoles, Tachycardia, Bradycardia, Systolic murmur, Diastolic murmur Peripheral Pulses: 2+ Radial (R), 2+ Radial (L), 2+ Dorsalis pedis (R), 2+ Dorsalis pedis (L) Abdomen: positive: Non-tender, No organomegaly, Nml bowel sounds, No distention. negative: Tenderness, Guarding, Rebound Back: positive: Nml inspection. negative: CVA tenderness (R), CVA tenderness (L ) Skin: positive: Color nml, No rash, Warm, Dry. negative: Cyanosis, Diaphoresis , Pallor Extremities: positive: Non-tender, Full ROM, Nml appearance. negative: Calf tenderness, Joint swelling, Cher's sign/cords Neurologic/Psychiatric: positive: Oriented x3, Motor nml, Sensation nml. negative: Weakness, Sensory loss, Facial droop, Slurred/abnml speech, Depressed mood/affect - Lab Results Fish Bones: 08/24/17 04:55 08/24/17 04:55 Other Labs: Lab Results x24hrs 08/24/17 08/24/17 Range/Units 04:55 04:55 WBC 9.0 (4.8-10.8) x10^3/uL RBC 4.32 L (4.70-6.10) 10^6/uL Hgb 12.3 L (14.0-18.0) g/dL Hct 36.4 L (42.0-52.0) % MCV 84.2 (80.0-94.0) fL MCH 28.5 (27.0-31.0) pg MCHC 33.9 (32.0-36.0) g/dL RDW 13.5 (12.0-15.0) % Plt Count 251 (130-450) 10^3/uL MPV 7.6 (7.4-11.4) fL Neut # 7.0 H (1.5-6.6) 10^3/uL Lymph # 0.7 L (1.5-3.5) 10^3/uL [place] # 1.2 H (0.0-1.0) 10^3/uL Eos # 0.0 (0.0-0.7) 10^3/uL Baso # 0.0 (0.0-0.1) 10^3/uL Absolute Nucleated RBC 0.00 x10^3/uL Nucleated RBC % 0.0 /100WBC Sodium 129 L (135-145) mmol/L Potassium 3.2 L (3.5-5.0) mmol/L Chloride 93 L (101-111) mmol/L Carbon Dioxide 30 (21-32) mmol/L Anion Gap 6.0 (6-13) BUN 11 (6-20) mg/dL Creatinine 1.1 (0.6-1.2) mg/dL Estimated GFR (MDRD) 65 L (>89) Glucose 112 H (70-100) mg/dL Calcium 7.1 L (8.5-10.3) mg/dL Assessment/Plan - Problem List (1) CAP (community acquired pneumonia) Impression: (1) CAP (community acquired pneumonia) Conclusion/Plan: pt feel better, no fever, chill, cough. WBC is normal, 95% Sats on room air. continue antibiotics daily lab, vital monitor Patient presented to the emergency department secondary to fever at home. Patient is also been having some mild shortness of breath and cough. Recently the patient has been having issues of abdominal discomfort and nausea that have been ongoing for months and he is recently been seen by surgery for an EGD which revealed duodenitis but no other significant abnormalities. On presentation the patient had stable vital signs but did appear to be slightly dry and given his fever underwent a chest x-ray which revealed a right basilar infiltrate suggesting pneumonia. According to the pneumonia severity index the patient scored 124 points which put him at risk class IV with a 8.2 to 9.3% mortality. And hospitalization was recommended based on this risk. Plan: Patient was started on IV ceftriaxone and azithromycin for treatment of community acquired pneumonia Patient will be given IV fluids given his hyponatremia and the fact he appears to be dehydrated We will give the patient supplementary oxygen as needed Patient will likely need 1-2 days of IV antibiotics before he can be switched to oral antibiotics and discharged home. We will follow up on patient's blood cultures Qualifiers: Laterality: right Lung location: lower lobe of lung Qualified Code(s): J18.1 - Lobar pneumonia, unspecified organism (2) Hyponatremia Conclusion/Plan: improved from 125 to 129 continue IVF, daily lab and vital monitor Patient has hyponatremia in the setting of pneumonia and appears to be dry on examination. Patient likely has hypovolemic hyponatremia and will be given IV fluids. We will monitor the patient's sodium Hydrochlorothiazide could also be contributing to the hyponatremia therefore it will be held. (3) Hypokalemia Conclusion/Plan: K3.2 today, continue correct daily lab monitor The patient's potassium on presentation is 2.8 this is likely secondary to dehydration and persistent nausea which the patient has been dealing with for some time now. The patient will be given supplemental potassium orally and IV. We will monitor the patient's potassium and continue to replace potassium as needed. (4) Hypertension Conclusion/Plan: stable, monitor with vital check hold HCTZ now for hyponatremia. explain pt the reason to hold HCTZ The patient does have hypertension and takes hydrochlorothiazide for hypertension. The patient's blood pressure appears to be well controlled on presentation and given that the patient is hyponatremic we will hold his hydrochlorothiazide and monitor his blood pressure while he is hospitalized. We will restart the hydrochlorothiazide if needed. (5) Prostate cancer metastatic to bone Conclusion/Plan: out-pt for further treatment Patient has history of prostate cancer with metastasis to the bone. Patient does have chronic pain from the bone metastasis and takes oxycodone at home. While the patient is hospitalized here we will continue his home dose of oxycodone. The patient will follow up outpatient for further treatment for his prostate cancer. plan d/c tomorrow or after if electrolytic corrected, and pneumonia with PO meds Qualifiers: Laterality: right Lung location: lower lobe of lung Qualified Code(s): J18.1 - Lobar pneumonia, unspecified organism
[2017-08-24] MEDS: CALCIUM CITRATE 250 MG TABLET PO SCH (13:07)
[2017-08-24] MEDS ORDERED: CALCIUM GLUCONATE 1,000 MG in SODIUM CHLORIDE 0.9% 50 ML IV ONE (13:30)
[2017-08-24] MEDS: cefTRIAXone 2 GM in SODIUM CHLORIDE 0.9% MINIBAG 100 ML IV SCH (20:46)
[2017-08-24] MEDS ORDERED: AZITHROMYCIN INJ 500 MG in SODIUM CHLORIDE 0.9% 250 ML IV SCH (22:00)
[2017-08-25] MEDS: SODIUM CHLORIDE FLUSH 0.9% 10 ML SYRINGE IVP SCH ×4 (00:38→23:48)
[2017-08-25 05:03] LABS: BASOPHILS # (AUTO) 0.1 10^3/uL (0.0-0.1); BASOPHILS % (AUTO) 1.2 %; EOSINOPHILS # (AUTO) 0.1 10^3/uL (0.0-0.7); EOSINOPHILS % (AUTO) 1.8 %; HGB - HEMOGLOBIN 11.2 g/dL (14.0-18.0); LYMPHOCYTES # (AUTO) 0.9 10^3/uL (1.5-3.5); LYMPHOCYTES % (AUTO) 13.5 %; MEAN CORPUSCULAR HEMOGLOBIN 28.3 pg (27.0-31.0); MEAN CORPUSCULAR HGB CONC 33.5 g/dL (32.0-36.0); MEAN CORPUSCULAR VOLUME 84.5 fL (80.0-94.0); MEAN PLATELET VOLUME 7.6 fL (7.4-11.4); MONOCYTES # (AUTO) 1.1 10^3/uL (0.0-1.0); NEUTROPHILS # (AUTO) 4.1 10^3/uL (1.5-6.6); NEUTROPHILS % (AUTO) 65.5 %; PLT - PLATELET COUNT 226 10^3/uL (130-450); RED BLOOD COUNT 3.95 10^6/uL (4.70-6.10); RED CELL DISTRIBUTION WIDTH 13.7 % (12.0-15.0); WHITE BLOOD COUNT 6.3 x10^3/uL (4.8-10.8)
[2017-08-25 05:13] LABS: CALCIUM 7.2 mg/dL (8.5-10.3); CREATININE 0.9 mg/dL (0.6-1.2)
[2017-08-25] MEDS: ALBUTEROL NEB 2.5 MG/3 ML INH PRN (07:28)
[2017-08-25] MEDS: NS W/20 MEQ KCL 1,000 ML IV SCH ×3 (07:44→21:33)
[2017-08-25] MEDS: CHOLECALCIFEROL 400 UNIT TABLET PO SCH (08:12)
[2017-08-25] MEDS: ENOXAPARIN 40 MG/0.4 ML SYRINGE SUBQ SCH (08:12)
[2017-08-25] MEDS: CALCIUM CITRATE 250 MG TABLET PO SCH (08:12)
[2017-08-25] MEDS: SACCHAROMYCES BOULARDII 250 MG CAPSULE PO SCH ×2 (08:12→17:08)
[2017-08-25] MEDS: CALCIUM CARB (OYSTER SHELL) 500 MG TABLET PO SCH (08:12)
[2017-08-25] MEDS: FAMOTIDINE 20 MG TABLET PO SCH (08:12)
[2017-08-25] MEDS: TAMSULOSIN 0.4 MG CAPSULE PO SCH (08:13)
[2017-08-25] MEDS: POLYETHYLENE GLYCOL 3350 17 GM PACKET PO SCH (08:13)
[2017-08-25] MEDS: POTASSIUM CHLORIDE 20 MEQ TABLET PO SCH (08:13)
[2017-08-25] MEDS ORDERED: CALCIUM GLUCONATE 1,000 MG in SODIUM CHLORIDE 0.9% 50 ML IV ONE (10:00)
--- NOTE | 2017-08-25 10:29 | PROVIDER PROGRESS NOTE ---
Subjective - Prog Note Date Prog Note Date: 08/25/17 - Subjective Pt reports feeling: Improved Subjective: pt report he feel good, but some concern for last night his elevated temperature even not fever at 37.8 degree. Otherwise pt denies other complaints. plan to d/c home tomorrow. Current Medications - Current Medications Current Medications: Active Medications Acetaminophen (Tylenol) 650 mg PO Q4HR PRN PRN Reason: Pain 1 to 4 Albuterol () 2.5 mg INH Q4HR PRN PRN Reason: Wheezing Last Admin: 08/25/17 07:28 Dose: 2.5 mg Calcium Carbonate/Glycine (Oysco-500) 500 mg PO DAILY [facility] Last Admin: 08/25/17 08:12 Dose: 500 mg Calcium Citrate () 250 mg PO DAILY [facility] Last Admin: 08/25/17 08:12 Dose: 250 mg Cholecalciferol (Vitamin D3) 400 unit PO DAILY [facility] Last Admin: 08/25/17 08:12 Dose: 400 unit Enoxaparin Sodium (Lovenox) 40 mg SUBQ DAILY [facility] Last Admin: 08/25/17 08:12 Dose: 40 mg Famotidine (Pepcid) 20 mg PO DAILY [facility] Last Admin: 08/25/17 08:12 Dose: 20 mg Azithromycin 500 mg/ Sodium (Chloride) 250 mls @ 250 mls/hr IV Q24H [facility] Last Infusion: 08/24/17 22:53 Dose: Infused Ceftriaxone Sodium 2 gm/ (Sodium Chloride) 100 mls @ 200 mls/hr IV HS [facility] Last Infusion: 08/24/17 21:17 Dose: Infused Calcium Gluconate 1,000 mg/ (Sodium Chloride) 60 mls @ 60 mls/hr IV ONCE ONE Stop: 08/25/17 10:59 Last Admin: 08/25/17 09:40 Dose: 60 mls/hr Potassium Chloride/Sodium Chloride (Normal Saline 0.9% W/20 Meq Kcl) 1,000 mls @ 83 mls/hr IV .Q12H3M [facility] Morphine Sulfate (Morphine) 2 mg IVP Q2H PRN PRN Reason: Pain 8 to 10 Ondansetron HCl (Zofran Inj) 4 mg IVP Q6HR PRN PRN Reason: Nausea / Vomiting Oxycodone HCl (Roxicodone) 5 mg PO Q4HR PRN PRN Reason: Pain 5 to 7 Oxycodone HCl (Roxicodone) 10 mg PO Q4HR PRN PRN Reason: Pain 8 to 10 Polyethylene Glycol (Miralax) 17 gm PO DAILY [facility] Last Admin: 08/25/17 08:13 Dose: Not Given Potassium Chloride (K-Dur) 20 meq PO DAILY [facility] Last Admin: 08/25/17 08:13 Dose: 20 meq Prochlorperazine Edisylate (Compazine Inj) 10 mg IVP Q6HR PRN PRN Reason: Nausea / Vomiting Promethazine HCl (Phenergan Inj) 25 mg IM Q6HR PRN PRN Reason: Nausea / Vomiting Saccharomyces Boulardii (Florastor) 250 mg PO BIDWM [facility] Last Admin: 08/25/17 08:12 Dose: 250 mg Sodium Chloride (Normal Saline Flush 0.9%) 10 ml IVP PRN PRN PRN Reason: NEEDED PER PROVIDER ORDERS Sodium Chloride (Normal Saline Flush 0.9%) 10 ml IVP 0100,0900,1700 [facility] Last Admin: 08/25/17 08:13 Dose: Not Given Tamsulosin HCl (Flomax) 0.4 mg PO DAILY [facility] Last Admin: 08/25/17 08:13 Dose: 0.4 mg Zolpidem Tartrate (Ambien) 5 mg PO QPM PRN PRN Reason: Insomnia Calcium Carbonate/Vitamin D3 [Calcium 600-Vit D3 400 Tablet] 1 tab PO DAILY Potassium Chloride [K-Dur] 20 meq PO DAILY 01/02/16 Tamsulosin [Flomax] 0.4 mg PO DAILY 01/02/16 hydroCHLOROthiazide [Hydrochlorothiazide] 25 mg PO DAILY 01/02/16 Objective - Vital Signs/Intake & Output Reviewed Vital Signs: Yes Vital Signs: Vital Signs x48h Pulse Resp 08/25/17 07:32 65 16 Intake & Output: Intake & Output 08/22/17 08/23/17 08/24/17 08/25/17 23:59 23:59 23:59 23:59 Intake Total 100 5523.334 1255 Balance 100 5523.334 1255 - Objective General Appearance: positive: No acute distress, Alert. negative: Lethargic Eyes Bilateral: positive: Normal inspection, PERRL, No lid inflammation, Conjunctivae nml ENT: positive: ENT inspection nml, Pharynx nml, No signs of dehydration. negative: Purulent nasal drainage, Pharyngeal erythema, Oral lesions Neck: positive: Nml inspection, Thyroid nml, No JVD, Trachea midline. negative : Thyromegaly, Lymphadenopathy (R), Lymphadenopathy (L), Stiff neck, Carotid bruit, Swelling/bruising, Tracheal deviation Respiratory: positive: Chest non-tender, No respiratory distress, Breath sounds nml, Wheezes, Rales, Rhonchi Cardiovascular: positive: Regular rate & rhythm, No murmur, No gallop. negative : Irregularly irregular, Extrasystoles, Tachycardia, Bradycardia, JVD present, Systolic murmur, Diastolic murmur Peripheral Pulses: 2+ Radial (R), 2+ Radial (L), 2+ Dorsalis pedis (R), 2+ Dorsalis pedis (L) Abdomen: positive: Non-tender, No organomegaly, Nml bowel sounds, No distention. negative: Tenderness, Guarding, Rebound Back: positive: Nml inspection. negative: CVA tenderness (R), CVA tenderness (L ) Skin: positive: Color nml, No rash, Warm, Dry. negative: Cyanosis, Diaphoresis , Pallor Extremities: positive: Non-tender, Full ROM, Nml appearance. negative: Calf tenderness, Joint swelling, Cher's sign/cords Neurologic/Psychiatric: positive: Oriented x3, Motor nml, Sensation nml. negative: Weakness, Sensory loss, Facial droop, Slurred/abnml speech, Depressed mood/affect - Lab Results Fish Bones: 08/25/17 04:41 08/25/17 04:41 Other Labs: Lab Results x24hrs 08/25/17 08/25/17 Range/Units 04:41 04:41 WBC 6.3 (4.8-10.8) x10^3/uL RBC 3.95 L (4.70-6.10) 10^6/uL Hgb 11.2 L (14.0-18.0) g/dL Hct 33.4 L (42.0-52.0) % MCV 84.5 (80.0-94.0) fL MCH 28.3 (27.0-31.0) pg MCHC 33.5 (32.0-36.0) g/dL RDW 13.7 (12.0-15.0) % Plt Count 226 (130-450) 10^3/uL MPV 7.6 (7.4-11.4) fL Neut # 4.1 (1.5-6.6) 10^3/uL Lymph # 0.9 L (1.5-3.5) 10^3/uL [place] # 1.1 H (0.0-1.0) 10^3/uL Eos # 0.1 (0.0-0.7) 10^3/uL Baso # 0.1 (0.0-0.1) 10^3/uL Absolute Nucleated RBC 0.00 x10^3/uL Nucleated RBC % 0.0 /100WBC Sodium 131 L (135-145) mmol/L Potassium 3.8 (3.5-5.0) mmol/L Chloride 99 L (101-111) mmol/L Carbon Dioxide 28 (21-32) mmol/L Anion Gap 4.0 L (6-13) BUN 11 (6-20) mg/dL Creatinine 0.9 (0.6-1.2) mg/dL Estimated GFR (MDRD) 82 L (>89) Glucose 115 H (70-100) mg/dL Calcium 7.2 L (8.5-10.3) mg/dL Assessment/Plan - Problem List (1) CAP (community acquired pneumonia) Impression: (1) CAP (community acquired pneumonia) Conclusion/Plan: pt had slight elevated temperature 37.6 and 37.8 degree, pt concerns. we will closely monitor, otherwise pt is improved. plan to d/c tomorrow with oral antibiotics. pt feel better, no fever, chill, cough. WBC is normal, 95% Sats on room air. continue antibiotics daily lab, vital monitor Patient presented to the emergency department secondary to fever at home. Patient is also been having some mild shortness of breath and cough. Recently the patient has been having issues of abdominal discomfort and nausea that have been ongoing for months and he is recently been seen by surgery for an EGD which revealed duodenitis but no other significant abnormalities. On presentation the patient had stable vital signs but did appear to be slightly dry and given his fever underwent a chest x-ray which revealed a right basilar infiltrate suggesting pneumonia. According to the pneumonia severity index the patient scored 124 points which put him at risk class IV with a 8.2 to 9.3% mortality. And hospitalization was recommended based on this risk. Plan: Patient was started on IV ceftriaxone and azithromycin for treatment of community acquired pneumonia Patient will be given IV fluids given his hyponatremia and the fact he appears to be dehydrated We will give the patient supplementary oxygen as needed Patient will likely need 1-2 days of IV antibiotics before he can be switched to oral antibiotics and discharged home. We will follow up on patient's blood cultures (2) Hyponatremia Conclusion/Plan: improved to 131, continue IVF with NS improved from 125 to 129 continue IVF, daily lab and vital monitor Patient has hyponatremia in the setting of pneumonia and appears to be dry on examination. Patient likely has hypovolemic hyponatremia and will be given IV fluids. We will monitor the patient's sodium Hydrochlorothiazide could also be contributing to the hyponatremia therefore it will be held. (3) Hypokalemia Conclusion/Plan: resolved K3.2 today, continue correct daily lab monitor The patient's potassium on presentation is 2.8 this is likely secondary to dehydration and persistent nausea which the patient has been dealing with for some time now. The patient will be given supplemental potassium orally and IV. We will monitor the patient's potassium and continue to replace potassium as needed. (4) Hypertension Conclusion/Plan: stable, monitor with vital check hold HCTZ now for hyponatremia. explain pt the reason to hold HCTZ The patient does have hypertension and takes hydrochlorothiazide for hypertension. The patient's blood pressure appears to be well controlled on presentation and given that the patient is hyponatremic we will hold his hydrochlorothiazide and monitor his blood pressure while he is hospitalized. We will restart the hydrochlorothiazide if needed. 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 Patient does have chronic pain from the bone metastasis and takes oxycodone at home. While the patient is hospitalized here we will continue his home dose of oxycodone. The patient will follow up outpatient for further treatment for his prostate cancer. Qualifiers: Laterality: right Lung location: lower lobe of lung Qualified Code(s): J18.1 - Lobar pneumonia, unspecified organism
[2017-08-25] MEDS: AZITHROMYCIN 250 MG TABLET PO SCH (17:56)
[2017-08-25] MEDS: cefTRIAXone 2 GM in SODIUM CHLORIDE 0.9% MINIBAG 100 ML IV SCH (21:33)
[2017-08-26 04:20] LABS: BASOPHILS # (AUTO) 0.1 10^3/uL (0.0-0.1); BASOPHILS % (AUTO) 1.1 %; EOSINOPHILS # (AUTO) 0.2 10^3/uL (0.0-0.7); EOSINOPHILS % (AUTO) 3.4 %; HGB - HEMOGLOBIN 11.9 g/dL (14.0-18.0); LYMPHOCYTES # (AUTO) 0.7 10^3/uL (1.5-3.5); LYMPHOCYTES % (AUTO) 10.3 %; MEAN CORPUSCULAR HEMOGLOBIN 28.6 pg (27.0-31.0); MEAN CORPUSCULAR HGB CONC 33.6 g/dL (32.0-36.0); MEAN CORPUSCULAR VOLUME 85.2 fL (80.0-94.0); MEAN PLATELET VOLUME 7.5 fL (7.4-11.4); MONOCYTES # (AUTO) 0.9 10^3/uL (0.0-1.0); MONOCYTES % (AUTO) 14.1 %; NEUTROPHILS # (AUTO) 4.6 10^3/uL (1.5-6.6); NEUTROPHILS % (AUTO) 71.1 %; PLT - PLATELET COUNT 258 10^3/uL (130-450); RED BLOOD COUNT 4.17 10^6/uL (4.70-6.10); WHITE BLOOD COUNT 6.4 x10^3/uL (4.8-10.8)
[2017-08-26 04:28] LABS: CALCIUM 7.7 mg/dL (8.5-10.3)
--- NOTE | 2017-08-26 07:28 | Discharge Plan ---
Discharge Plan Disposition: 01 Home, Self Care Condition: Stable Prescriptions: Albuterol 2.5 mg INH Q4HR PRN #1 neb PRN Reason: Wheezing Azithromycin [Zithromax] 250 mg PO DAILY #4 tablet Diet: Regular Activity Restrictions: Activity as Tolerated Shower Restrictions: No (fall precaution, caregiver closely monitor) Weight Bearing: Full Weight Instruction Topics: Azithromycin tablets, Albuterol inhalation solution, Hydrochlorothiazide HCTZ capsules or tablets, Pneumonia, Hyponatremia Dc Additional Instructions or Follow Up instructions: May see PCP in 2-3 days, may hold hydrochlorothiazide until see PCP due to hyponatremia. Should symptoms return or worsen, may present ER or call 911 for help. No Smoking: If you smoke, Please STOP! Call for help. Follow-up with: Gretchen Cedeno MD [Primary Care Provider] -
[2017-08-26] MEDS: FAMOTIDINE 20 MG TABLET PO SCH (08:53)
[2017-08-26] MEDS: CHOLECALCIFEROL 400 UNIT TABLET PO SCH (08:54)
[2017-08-26] MEDS: CALCIUM CITRATE 250 MG TABLET PO SCH (08:54)
[2017-08-26] MEDS: TAMSULOSIN 0.4 MG CAPSULE PO SCH (08:54)
[2017-08-26] MEDS: ENOXAPARIN 40 MG/0.4 ML SYRINGE SUBQ SCH (08:54)
[2017-08-26] MEDS: POLYETHYLENE GLYCOL 3350 17 GM PACKET PO SCH (08:54)
[2017-08-26] MEDS: POTASSIUM CHLORIDE 20 MEQ TABLET PO SCH (08:54)
[2017-08-26] MEDS: AZITHROMYCIN 250 MG TABLET PO SCH (08:54)
[2017-08-26] MEDS: SACCHAROMYCES BOULARDII 250 MG CAPSULE PO SCH (08:54)
[2017-08-26] MEDS: CALCIUM CARB (OYSTER SHELL) 500 MG TABLET PO SCH (08:54)
[2017-08-26] MEDS: SODIUM CHLORIDE FLUSH 0.9% 10 ML SYRINGE IVP SCH (08:54)
[2017-08-26 09:07] VITALS: BP 133/78
--- NOTE | 2017-08-26 11:07 | DISCHARGE SUMMARY ---
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 No fever, chill, cough. continue antibiotics course (2) Hyponatremia today Na is 133. hold HCTZ until seen by pt's PCP for hyponatremia. Pt's BP is stable at hospital without HCTZ (3) Hypokalemia resolved (4) Hypertension stable. 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 Daley's HPI on pt as the following: Patient is a 72-year-old gentleman with a past medical history significant for hypertension, prostate cancer with solitary bone metastasis at the suprapubic region status post radiation therapy to the prostate and metastatic bone site on Lupron injections and Zometa every 3 months for maintenance treatment presenting to the emergency department with a chief complaint of fever. The patient states he was in his normal state of health until the last few days when he has been having increasing low back pain with some mild shortness of breath and mild cough. Today the patient states that he was nauseated and when his checked his temperature he had a fever of 102 Fahrenheit. The patient states that he has been having some issues with his stomach and has had nausea for which he has been worked up by surgery as an outpatient. He recently had a EGD a few days ago which showed the patient has duodenitis but was otherwise negative. The patient denies any chest pain, orthopnea, PND, increased lower extremity swelling or any night sweats. The patient has not been around any sick contacts. The patient was given Tylenol at home by his after he was found to have fever. The patient denies any headaches, blurred vision, runny nose, sore throat, nasal congestion, diarrhea, constipation, urinary frequency, dysuria, muscle aches, joint swelling, recent unintentional weight loss, changes in his appetite , skin rashes or hair loss, neck stiffness, difficulty swallowing or any focal neurologic deficits. On presentation to the emergency department the patient was afebrile, tachycardic with a heart rate of 97 and oxygen saturation was 94% on room air but patient did not appear to be in any respiratory distress nor was he tachypneic. The patient underwent routine lab work which showed no evidence of leukocytosis however patient was hypo-treatment with a sodium of 125 and hypokalemic with a potassium of 2.8. The patient's influenza swab was negative and his urine analysis showed large occult blood and RBCs but was negative for infection. The patient underwent a chest x-ray which revealed a significant right basilar infiltrate with possible involvement of the left base. Given the patient's history of metastatic disease, age, hyponatremia and pneumonia severity index score the patient was admitted to the [facility] for treatment of community-acquired pneumonia. - HOSPITAL COURSE Hospital Course: pt was admitted for subjective fever reported at home. Pt was then found to pneumonia and hyponatemia. Pt was treated with antibiotics and gently IVF. after treatment, pt did not have fever, pt has 98% Sats of O2 on room air. Na is 133 today. Pt is prescribed antibiotics to finish pneumonia course. HCTZ is hold for hyponatremia. Pt's BP is stable without HCTZ in the hospital course. - ALLERGIES Allergies/Adverse Reactions: Allergies Allergy/AdvReac Type Severity Reaction Status Date / Time No Known Drug Allergies Allergy Verified 08/19/17 14:42 - MEDICATIONS Home Medications: Ambulatory Orders Medication Instructions Recorded Confirmed Calcium Carbonate/Vitamin D3 1 tab PO DAILY 01/02/16 08/20/17 [Calcium 600-Vit D3 400 Tablet] Potassium Chloride [K-Dur] 20 meq PO DAILY 01/02/16 08/24/17 Tamsulosin [Flomax] 0.4 mg PO DAILY 01/02/16 08/20/17 oxyCODONE [Roxicodone] 5 mg PO Q6H PRN #14 tablet 08/16/17 08/24/17 Albuterol 2.5 mg INH Q4HR PRN #1 neb 08/26/17 Azithromycin [Zithromax] 250 mg PO DAILY #4 tablet 08/26/17 - PHYSICAL EXAM AT DISCHARGE General Appearance: positive: No acute distress, Alert. negative: Lethargic Eyes Bilateral: positive: Normal inspection, PERRL, No lid inflammation, Conjunctivae nml ENT: positive: ENT inspection nml, Pharynx nml, No signs of dehydration. negative: Purulent nasal drainage, Pharyngeal erythema, Oral lesions Neck: positive: Nml inspection, Thyroid nml, No JVD, Trachea midline. negative : Thyromegaly, Lymphadenopathy (R), Lymphadenopathy (L), Stiff neck, Carotid bruit, Swelling/bruising, Tracheal deviation Respiratory: positive: Chest non-tender, No respiratory distress, Breath sounds nml. negative: Wheezes, Rales, Rhonchi Cardiovascular: positive: Regular rate & rhythm, No murmur, No gallop. negative : Irregularly irregular, Extrasystoles, Tachycardia, Bradycardia, JVD present, Systolic murmur, Diastolic murmur Peripheral Pulses: positive: 2+ Abdomen: positive: Non-tender, No organomegaly, Nml bowel sounds, No distention. negative: Tenderness, Guarding, Rebound Back: positive: Nml inspection. negative: CVA tenderness (R), CVA tenderness (L ) Skin: positive: Color nml, No rash, Warm, Dry. negative: Cyanosis, Diaphoresis , Pallor Extremities: positive: Non-tender, Full ROM, Nml appearance. negative: Calf tenderness, Joint swelling, Cher's sign/cords Neurologic/Psychiatric: positive: Oriented x3, Motor nml, Sensation nml. negative: Weakness, Sensory loss, Facial droop, Slurred/abnml speech, Depressed mood/affect - LABS Result Diagrams: 08/26/17 04:04 08/26/17 04:04 - FOLLOW UP Follow Up: May see PCP in 2-3 days, may hold hydrochlorothiazide until see PCP due to hyponatremia. Should symptoms return or worsen, may present ER or call 911 for help. - TIME SPENT Time Spent in Discharge (Minutes): 45
== END 2017-08-26 12:06 | disposition home or self-care (01) | DRG 194 ==
LOC: ED 20:27 → MS3 22:55
PROVIDERS: ADMIT Internal Medicine; ATTEND Nurse Practitioner Gerontology
DX: J18.9 Pneumonia, unspecified organism (principal); J18.1 Lobar pneumonia, unspecified organism; E87.1 Hypo-osmolality and hyponatremia; K44.9 Diaphragmatic hernia without obstruction or gangrene; G89.29 Other chronic pain; M54.9 Dorsalgia, unspecified; C79.51 Secondary malignant neoplasm of bone; C79.9 Secondary malignant neoplasm of unspecified site; R01.1 Cardiac murmur, unspecified; E87.6 Hypokalemia; I10 Essential (primary) hypertension; C61 Malignant neoplasm of prostate; R31.9 Hematuria, unspecified; K29.80 Duodenitis without bleeding; K21.9 Gastro-esophageal reflux disease without esophagitis; Z79.891 Long term (current) use of opiate analgesic; Z79.899 Other long term (current) drug therapy; Z92.3 Personal history of irradiation
CPT/HCPCS: 36415; 71045; 80048; 80053; 81001; 81003; 83605; 83690; 85025; 87040; 87086; 87275; 87276; 94640; 96361; 96374; 96375; 99283; 99284

== ENCOUNTER 2017-08-29 12:08 | Outpatient (CLI) | payer MEDICARE, OTHER ==
[2017-08-29 12:54] LABS: CALCIUM 8.8 mg/dL (8.5-10.3)
== END 2017-08-29 12:09 | disposition home or self-care (01) ==
LOC: LAB 12:08
PROVIDERS: ATTEND Internal Medicine
DX: E87.1 Hypo-osmolality and hyponatremia (principal)
CPT/HCPCS: 36415; 80048

== ENCOUNTER 2017-08-30 14:47 | Outpatient (CLI) | payer MEDICARE, OTHER ==
--- NOTE | 2017-08-30 21:00 | Ultrasound Preliminary Report ---
Exam: US ABDOMEN LIMITED IMPRESSION: 1. 2.1 x 2.0 x 1.7 cm mid right renal mass, highly suspicious for renal cell carcinoma. Dedicated mul tiphase renal CT recommended to further evaluate. 2. No cholelithiasis nor cholecystitis. [facility] SITE ID: [id number]
--- NOTE | 2017-08-30 21:07 | Ultrasound Report ---
EXAM: ABDOMEN ULTRASOUND LIMITED, RUQ EXAM DATE: 08/30/2017 05:04 PM. CLINICAL HISTORY: Epigastric pain. Prostate cancer. Recent diagnosis of pneumonia. COMPARISON: None. TECHNIQUE: Real-time scanning was performed with static images obtained. FINDINGS: Note that this study is compromised due to the patient's body habitus. Liver: Normal in size and echotexture. 14.4 cm. Main portal vein flow: Hepatopetal. Gallbladder: Normal. No stones, wall thickening, or sonographic Felix's sign. Biliary System: CBD measures 4.4 mm. No intrahepatic or extrahepatic ductal dilatation. Other: Right kidney measures 11.8 cm in length. There is a 2.1 x 1.7 x 2.0 cm solid hypoechoic vascular lesion centrally. No right hydronephrosis. 2.2 x 2.1 x 1.7 cm cyst off the superior pole. IMPRESSION: 1. 2.1 x 2.0 x 1.7 cm mid right renal mass, highly suspicious for renal cell carcinoma. Dedicated [facility] tipse renal CT recommended to further evaluate. 2. No cholelithiasis nor cholecystitis. [facility] Referring Provider Line: [phone] SITE ID: [id number]
== END 2017-08-30 14:48 | disposition home or self-care (01) ==
LOC: DI 14:47
PROVIDERS: ATTEND Surgery
DX: N28.89 Other specified disorders of kidney and ureter (principal)
CPT/HCPCS: 76705

== ENCOUNTER 2017-09-06 06:33 | Outpatient (CLI) | payer MEDICARE, OTHER ==
[2017-09-06] MEDS ORDERED: IOPAMIDOL-300 100 ML VIAL ONE (07:56)
[2017-09-06] MEDS ORDERED: IOPAMIDOL-300 100 ML VIAL IVP ONE (08:47)
--- NOTE | 2017-09-06 19:28 | CT Report ---
CT IVP: 09/06/2017 INDICATION: Possible right kidney mass on ultrasound. COMPARISON: Ultrasound 08/30/2017, CT 04/08/2017. TECHNIQUE: Axial CT images of the abdomen were obtained prior to and following 100 mL of contrast, with images obtained in the early arterial, portal venous, and delayed phases. Limited evaluation of the lung bases demonstrates a right lower lobe infiltrate. ABDOMEN: On the unenhanced images, there is no evidence of nephrolithiasis or hydronephrosis. The kidneys demonstrate parapelvic cysts bilaterally. No solid hilar renal mass is identified in the right kidney. Cortical cysts are also present. The liver, spleen, pancreas and adrenal glands are unremarkable. The gallbladder is not dilated. No bowel dilatation, free gas, or free fluid is present. No abdominal adenopathy is seen. PELVIS: Fiducial markers are noted in the prostate. No pelvic adenopathy or free fluid is present. No distal hydroureter or ureterolithiasis is identified. Osseous structures demonstrate degenerative changes. IMPRESSION: 1. PARAPELVIC CYSTS IN THE RIGHT KIDNEY, BUT NO SOLID RENAL MASS IS IDENTIFIED. 2. RIGHT LOWER LOBE INFILTRATE. 3. FIDUCIAL MARKERS IN THE PROSTATE. TD: 09/06/2017 19:27
== END 2017-09-06 06:34 | disposition home or self-care (01) ==
LOC: DI 06:33
PROVIDERS: ATTEND Surgery
DX: R93.5 Abnormal findings on diagnostic imaging of other abdominal regions, including retroperitoneum (principal); N28.89 Other specified disorders of kidney and ureter; N28.1 Cyst of kidney, acquired
CPT/HCPCS: 74178; Q9967

== ENCOUNTER 2018-02-12 05:20 | Emergency (ER) | payer MEDICARE, OTHER ==
--- NOTE | 2018-02-12 05:28 | ED Physician Documentation ---
PD HPI BACK PAIN - Stated complaint Stated Complaint: BACK PAIN - Chief complaint Chief Complaint: Back Pain - History obtained from History obtained from: Patient - History of Present Illness Timing - onset: How many days ago (4) Timing - duration: Days Timing - details: Gradual onset Pain level now: 6 Location: Lower, Left Quality: Pain. No: Spasm Associated symptoms: No: Fever, Weakness, Numbness, Incontinent of urine, Unable to urinate, Hematuria, Incontinent of stool Improves with: Rest Worsened by: Movement Recently seen: Not recently seen - Additional information Additional information: 4 days of gradual onset, waxing and waning left low back pain and left posterior bony pelvis pain. distinctly worse with movement, denies injury. Review of Systems Constitutional: reports: Reviewed and negative GI: reports: Reviewed and negative : denies: Unable to Void, Incontinent Musculoskeletal: reports: Back pain, Pain with weight bearing Neurologic: denies: Focal weakness, Numbness PD PAST MEDICAL HISTORY - Past Medical History Cardiovascular: Hypertension, Murmur Respiratory: None Endocrine/Autoimmune: None GI: GERD : Other HEENT: None Psych: None Musculoskeletal: Chronic back pain Derm: None - Past Surgical History Past Surgical History: Yes General: EGD, Other HEENT: Tonsil/Adenoidectomy - Present Medications Home Medications: Ambulatory Orders Medication Instructions Recorded Confirmed Calcium Carbonate/Vitamin D3 1 tab PO DAILY 01/02/16 12/09/17 [Calcium 600-Vit D3 400 Tablet] Potassium Chloride [K-Dur] 20 meq PO DAILY 01/02/16 12/09/17 Lansoprazole 1 tab PO DAILY 09/09/17 12/09/17 oxyCODONE [Roxicodone] 5 mg PO Q4-6H PRN #20 tablet 02/12/18 - Allergies Allergies/Adverse Reactions: Allergies Allergy/AdvReac Type Severity Reaction Status Date / Time No Known Drug Allergies Allergy Verified 02/12/18 05:29 - Social History Does the pt smoke?: No Smoking Status: Never smoker Does the pt drink ETOH?: No Does the pt have substance abuse?: No - Immunizations Immunizations are current?: Yes - POLST Patient has POLST: No POLST Status: Full Code PD ED PE NORMAL - Vitals Vital signs reviewed: Yes - General General: Alert and oriented X 3, No acute distress (NAD at rest, appears to be in mild painful distress with movement involving low back), Well developed/nourished - Abdomen Abdomen: Soft, Non tender - Back Back: No CVA TTP, No spinal TTP - Derm Derm: Normal color, Warm and dry, No rash - Extremities Extremities: No tenderness to palpate, No edema - Neuro Neuro: No motor deficit, No sensory deficit Results - Vitals Vitals: Vital Signs - 24 hr 02/12/18 05:25 Temperature 36.6 C Heart Rate 61 Respiratory 16 Rate Blood Pressure 134/92 H O2 Saturation 98 Oxygen O2 Source Room air - Rads (name of study) lumbar xrays Radiology: Prelim report reviewed, See rad report pelvis xray Radiology: Prelim report reviewed, See rad report PD MEDICAL DECISION MAKING - ED course Complexity details: reviewed results, re-evaluated patient, considered differential, d/w patient - Sepsis Event Vital Signs: Vital Signs - 24 hr 02/12/18 05:25 Temperature 36.6 C Heart Rate 61 Respiratory 16 Rate Blood Pressure 134/92 H O2 Saturation 98 Oxygen O2 Source Room air Departure - Departure Disposition: 01 Home, Self Care Clinical Impression: Back pain Condition: Good Instructions: NARCOTIC, Oral, ED Neck Back Pain General Follow-Up: Gretchen Cedeno MD [Primary Care Provider] - Prescriptions: oxyCODONE [Roxicodone] 5 mg PO Q4-6H PRN #20 tablet PRN Reason: Pain Discharge Date/Time: 02/12/18 07:02
[2018-02-12 05:29] VITALS: BP 134/92
--- NOTE | 2018-02-12 06:36 | XRAY Report ---
Reason: low back pain Procedure Date: 02/12/2018 Accession Number: [id number] / [id number] Procedure: XR - Lumbar Spine 2 View CPT Code: FULL RESULT: EXAM: LUMBOSACRAL SPINE RADIOGRAPHY EXAM DATE: 02/12/2018 06:30 AM. CLINICAL HISTORY: Low back pain. COMPARISONS: None. TECHNIQUE: 3 views. FINDINGS: Alignment: Mild degenerative levoscoliosis. Bones: Five [id number] lumbar vertebral bodies are present. No fractures or bone lesions. Disks: Moderate degenerative disk disease. Facets: Moderate facet arthropathy. Sacroiliac Joints: Unremarkable. Soft Tissues: Normal. The visualized bowel gas pattern is normal. IMPRESSION: Moderate degenerative changes, with mild degenerative levoscoliosis. No evidence of acute fracture. [facility]
--- NOTE | 2018-02-12 06:38 | XRAY Report ---
Reason: left posterior bony pelvis pain Procedure Date: 02/12/2018 Accession Number: [id number] / [id number] Procedure: XR - Pelvis 1 View CPT Code: FULL RESULT: EXAM: PELVIS RADIOGRAPHY EXAM DATE: 02/12/2018 06:30 AM. CLINICAL HISTORY: Left posterior bony pelvis pain. COMPARISON: PELVIS 1 VIEW 08/16/2017 1:01 AM. TECHNIQUE: 1 view. FINDINGS: Bones: Normal. No fracture or bone lesion. Joints: Moderate osteoarthritis of the hips. Soft Tissues: Fiducial markers in the prostate bed. IMPRESSION: Moderate osteoarthritis. No evidence of acute fracture. RADIA
== END 2018-02-12 07:02 | disposition home or self-care (01) ==
LOC: ED 05:20
DX: M54.9 Dorsalgia, unspecified (principal); G89.29 Other chronic pain; I10 Essential (primary) hypertension
CPT/HCPCS: 72100; 72170; 99283

== ENCOUNTER 2018-08-15 07:44 | Outpatient (CLI) | payer MEDICARE, OTHER ==
[2018-08-15 08:37] LABS: BASOPHILS % (AUTO) 0.6 %; EOSINOPHILS # (AUTO) 0.2 10^3/uL (0.0-0.7); EOSINOPHILS % (AUTO) 3.7 %; HGB - HEMOGLOBIN 14.1 g/dL (14.0-18.0); LYMPHOCYTES # (AUTO) 1.5 10^3/uL (1.5-3.5); LYMPHOCYTES % (AUTO) 22.4 %; MEAN CORPUSCULAR HEMOGLOBIN 28.8 pg (27.0-31.0); MEAN CORPUSCULAR HGB CONC 33.4 g/dL (32.0-36.0); MEAN CORPUSCULAR VOLUME 86.4 fL (80.0-94.0); MEAN PLATELET VOLUME 9.3 fL (7.4-11.4); MONOCYTES # (AUTO) 0.5 10^3/uL (0.0-1.0); MONOCYTES % (AUTO) 8.4 %; NEUTROPHILS # (AUTO) 4.3 10^3/uL (1.5-6.6); NEUTROPHILS % (AUTO) 64.9 %; PLT - PLATELET COUNT 187 10^3/uL (130-450); RED CELL DISTRIBUTION WIDTH 14.5 % (12.0-15.0); WHITE BLOOD COUNT 6.5 x10^3/uL (4.8-10.8)
[2018-08-15 08:58] LABS: HB2 TOTAL 15.6 g/dL; HEMOGLOBIN A1C 0.63 g/dL; HEMOGLOBIN A1C % 5.8 % (4.6-6.2)
[2018-08-15 09:04] LABS: ALBUMIN 3.5 g/dL (3.2-5.5); ALBUMIN/GLOBULIN RATIO 1.2 (1.0-2.2); ALKALINE PHOSPHATASE 48 IU/L (42-121); ALT ALANINE AMINOTRANSFERASE 19 IU/L (10-60); AST ASPARTATE AMINOTRANSFERASE 29 IU/L (10-42); BILIRUBIN,TOTAL 0.6 mg/dL (0.2-1.0); BUN - BLOOD UREA NITROGEN 15 mg/dL (6-20); CALCIUM 8.6 mg/dL (8.5-10.3); CARBON DIOXIDE - CO2 25 mmol/L (21-32); CHLORIDE 104 mmol/L (101-111); CHOL/HDL RATIO 3.4 (<5.0); CHOLESTEROL 195 mg/dL; GFR - MDRD 73 (>89); GLUCOSE 104 mg/dL (70-100); HDL CHOLESTEROL 57 mg/dL; LDL CHOLESTEROL,CALCULATED 123 mg/dL; LDL/HDL RATIO 2.2 (<3.6); SODIUM 137 mmol/L (135-145); TOTAL PROTEIN 6.5 g/dL (6.7-8.2); VLDL CHOLESTEROL 15 mg/dL
== END 2018-08-15 07:45 | disposition home or self-care (01) ==
LOC: LAB 07:44
PROVIDERS: ATTEND Internal Medicine
DX: I10 Essential (primary) hypertension (principal); Z79.899 Other long term (current) drug therapy; J44.9 Chronic obstructive pulmonary disease, unspecified; Z13.6 Encounter for screening for cardiovascular disorders; R73.01 Impaired fasting glucose; C61 Malignant neoplasm of prostate
CPT/HCPCS: 36415; 80053; 80061; 83036; 83721; 84443; 85025

== ENCOUNTER 2019-04-08 09:33 | Outpatient (CLI) | payer MEDICARE, OTHER ==
--- NOTE | 2019-04-09 09:25 | DEXA Report ---
Reason: OSEOPOROSIS Procedure Date: 04/08/2019 Accession Number: [id number] / [id number] Procedure: DEX - Dexa Spine and/or Hip CPT Code: Final Report FULL RESULT: EXAM: Dexa Spine and/or Hip DATE: 04/08/2019 10:08 AM CLINICAL HISTORY: OSTEOPOROSIS TECHNIQUE: Dual energy x-ray absorptiometry (DXA) was performed on a [employer] System. Regions measured are the AP Spine, femoral neck, and if needed forearm. COMPARISON: None. In accordance with the International Society for Clinical Densitometry (ISCD) guidelines, data from previous exams may be reanalyzed using current recommendations and techniques. This is done to allow a more accurate basis for comparison with the current study. FINDINGS: The data for the lumbar spine is as follows: BMD (g/cm/cm) T-SCORE Z-SCORE REGION L1 1.030 -1.1 -1.2 L2 1.093 -1.2 -1.3 L3 1.202 -0.3 -0.4 L4 1.206 -0.3 -0.4 TOTAL 1.134 -0.7 -0.8 NOTE: All evaluable vertebrae are used for classification The data for the hip is as follows: BMD (g/cm/cm) T-SCORE Z-SCORE REGION Neck 0.887 -1.4 -0.5 TOTAL 1.019 -0.6 -0.1 NOTE: The femoral neck or total proximal femur, whichever is lowest, is used for classification. IMPRESSION: THE WHO CLASSIFICATION BASED ON THE INTERNATIONAL REFERENCE STANDARD IS OSTEOPENIA. THE FRACTURE RISK IS INCREASED. RECOMMENDATION: Patients with diagnosis of osteoporosis or osteopenia should have regular bone mineral density assessment. For those eligible for Medicare, routine testing is allowed once every 2 years. Testing frequency can be increased for patients who have rapidly progressing disease or for those who are receiving medical therapy to restore bone mass. COMMENT: World Health Organization (WHO) definitions for osteoporosis and osteopenia: NORMAL BMD: T-score at -1.0 or higher, fracture risk is low OSTEOPENIA BMD: T-score between -1.0 and -2.5, fracture risk is increased. OSTEOPOROSIS BMD: T-score at -2.5 or lower, fracture risk is high. National Osteoporosis Foundation recommends: 1. Obtain adequate dietary calcium (at least 1200 mg per day) and vitamin D (400-800 international units per day). 2. Participate, as appropriate, in regular weightbearing and muscle-strengthening exercise. 3. Avoid tobacco use and reduce alcohol and caffeine intake. 4. For more detailed information see the website at www.NOF.org.
== END 2019-04-08 09:34 | disposition home or self-care (01) ==
LOC: DI 09:33
PROVIDERS: ATTEND Thoracic Surgery (Cardiothoracic Vascular Surgery)
DX: M85.88 Other specified disorders of bone density and structure, other site (principal); C61 Malignant neoplasm of prostate
CPT/HCPCS: 77080

== ENCOUNTER 2019-09-13 11:29 | Emergency (ER) | payer MEDICARE, OTHER ==
--- NOTE | 2019-09-13 13:36 | ED Physician Documentation ---
PD HPI Fall - Stated complaint Stated Complaint: GLF - Chief complaint Chief Complaint: Trauma Ch/Bk - History obtained from History obtained from: Patient - History of Present Illness Mechanism of injury: Tripped Fall distance: Standing position Where injury occurred: Home Timing - onset: Enter time (0900), Today Injury(ies) location: Chest Quality of pain: Pain Associated symptoms: No: LOC, AMS, Amnesia Symptoms improve with: Rest Worsens with: Movement, Palpation Contributing factors: No: Anticoagulated Similar symptoms before: Diagnosis (chest wall contusion) Recently seen: Not recently seen - Additional information Additional information: 74-year-old male was walking his dog who was on a leash the dog pulled him and he fell over an embankment about 6 weeks ago. He did not come in for that fall. Today he was walking back to his shop and tripped over the dog lead and fell onto his right chest wall again. He has some pain there and some difficulty getting a full deep breath. Review of Systems Constitutional: denies: Fever, Chills, Myalgias Eyes: denies: Decreased vision Ears: denies: Ear pain Nose: denies: Congestion Throat: denies: Sore throat Cardiac: reports: Chest pain / pressure. denies: Palpitations Respiratory: denies: Dyspnea, Cough, Wheezing GI: denies: Abdominal Pain, Nausea, Vomiting : denies: Dysuria, Frequency PD PAST MEDICAL HISTORY - Past Medical History Cardiovascular: Hypertension, Murmur Respiratory: None Endocrine/Autoimmune: None GI: GERD : Other HEENT: None Psych: None Musculoskeletal: Chronic back pain Derm: None Other Past Medical History: Prostate cancer - Past Surgical History Past Surgical History: Yes General: EGD, Other HEENT: Tonsil/Adenoidectomy - Present Medications Home Medications: Ambulatory Orders Medication Instructions Recorded Confirmed Calcium Carbonate/Vitamin D3 1 tab PO DAILY 01/02/16 06/15/19 [Calcium 600-Vit D3 400 Tablet] Potassium 99 99 mg PO DAILY 12/15/18 06/15/19 Hydrocodone/Acetaminophen 1 - 2 each PO Q6H PRN #14 tablet 09/13/19 [Hydrocodon-Acetaminophen 5-325] - Allergies Allergies/Adverse Reactions: Allergies Allergy/AdvReac Type Severity Reaction Status Date / Time No Known Drug Allergies Allergy Verified 06/15/19 09:01 - Social History Does the pt smoke?: No Smoking Status: Never smoker Does the pt drink ETOH?: No Does the pt have substance abuse?: No - Immunizations Immunizations are current?: Yes - POLST Patient has POLST: No POLST Status: Full Code PD ED PE NORMAL - Vitals Vital signs reviewed: Yes (hypertensive ) - General General: Alert and oriented X 3, No acute distress, Well developed/nourished - HEENT HEENT: Atraumatic, PERRL, EOMI - Respiratory Respiratory: No respiratory distress, Clear bilaterally, Other (There is point tenderness to the anterior chest wall closer to the sternum. 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 No obvious rib fracture seen.), EMP read indepedently, See rad report PD MEDICAL DECISION MAKING - ED course Complexity details: reviewed old records, reviewed results, re-evaluated patient, considered differential, d/w patient ED course: 74-year-old male with a right chest wall contusion has mild pain to compression of the chest wall and normal vital signs. He has no evidence of hemopneumothorax or rib fracture on plain film. Departure - Departure Disposition: 01 Home, Self Care Clinical Impression: Chest wall contusion Qualifiers: Encounter type: initial encounter Laterality: right Qualified Code(s): S20.211A - Contusion of right front wall of thorax, initial encounter Condition: Stable Instructions: ED Contusion Chest Wall Follow-Up: Moe Yeh MD [Primary Care Provider] - Prescriptions: Hydrocodone/Acetaminophen [Hydrocodon-Acetaminophen 5-325] 1 - 2 each PO Q6H PRN #14 tablet PRN Reason: pain Discharge Date/Time: 09/13/19 14:25
[2019-09-13 13:55] VITALS: BP 143/100
--- NOTE | 2019-09-13 13:55 | XRAY Report ---
Reason: fall R rib contusion anterior Procedure Date: 09/13/2019 Accession Number: [id number] / [id number] Procedure: XR - Ribs w/PA Chest RT CPT Code: Final Report FULL RESULT: EXAM: RIGHT RIB RADIOGRAPHY EXAM DATE: 09/13/2019 01:04 PM. CLINICAL HISTORY: Chest pain post fall. COMPARISON: CHEST 1 VIEW 08/23/2017 9:51 PM. TECHNIQUE: 1 view of the chest and 4 views of the ribs. FINDINGS: Bones: Normal. No fracture or bone lesion. Lungs: Mild atelectatic changes seen at the left base. No gross consolidation noted. Mediastinum: Heart and mediastinal contours are unremarkable. Other: None. IMPRESSION: Mild atelectatic changes at the left base, otherwise unremarkable exam. No obvious rib fracture seen. RADIA
== END 2019-09-13 14:25 | disposition home or self-care (01) ==
LOC: ED 11:29
DX: S20.211A Contusion of right front wall of thorax, initial encounter (principal); W01.0XXA Fall on same level from slipping, tripping and stumbling without subsequent striking against object, initial encounter; Y93.01 Activity, walking, marching and hiking; Y92.008 Other place in unspecified non-institutional (private) residence as the place of occurrence of the external cause; I10 Essential (primary) hypertension
CPT/HCPCS: 99283; 99284

== ENCOUNTER 2020-03-25 08:37 | Outpatient (CLI) | payer MEDICARE, OTHER ==
--- NOTE | 2020-03-25 18:08 | Nuclear Medicine Report ---
PROCEDURE: Bone Whole Body INDICATIONS: PROSTATE CA RADIOPHARMACEUTICAL: 25.7 mCi Tc-99m MDP IV. TECHNIQUE: Delayed whole-body scintigrams were obtained approximately 3-4 hours after intravenous injection of r adiotracer. Anterior and posterior views were acquired from vertex to feet. Additional left and rig ht oblique views of the were obtained. COMPARISON: CT abdomen and pelvis, 03/25/2020. Previous base chest x-ray, 09/13/2019. FINDINGS: There are 3 foci of increased uptake in the right anterior ribs, likely related to traumat ic injury. No lesions are identified in skull, sternum, scapulae, bony pelvis and visualized shafts o f the long bones. Low level increased uptake in the lower cervical spine, thoracic spine and lumbar s pine is most likely in degenerative in nature. Early metastatic disease could be obscured. There are foci of increased periarticular activity in shoulders bilaterally, knees bilaterally, ankles and feet bilaterally, consistent with degenerative/arthritic changes. IMPRESSION: 1. No definitive scintigraphic findings to to suggest osseous metastasis. 2. Foci of increased uptake in the right anterior ribs, compatible with rib fractures. Reviewed by: Madhu Duggan MD on 03/25/2020 6:07 PM PST Approved by: Madhu Duggan MD on 03/25/2020 6:07 PM PST Station ID: [id number]
== END 2020-03-25 08:38 | disposition home or self-care (01) ==
LOC: DI 08:37
PROVIDERS: ATTEND Physician Assistant
DX: C61 Malignant neoplasm of prostate (principal); R10.2 Pelvic and perineal pain
CPT/HCPCS: 78306

== ENCOUNTER 2020-05-26 09:47 | Outpatient (CLI) | payer MEDICARE, OTHER ==
--- OUTSIDE RECORDS SUMMARY | 2020-06-01 01:04 | EXTERNAL MEDICAL SUMMARY RPT | Continuity of Care Document ---
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 2020-02-29 11:00 CHRONIC FATIGUE[facility] 2020-02-29 11:00 OTHER GENERAL SYMPTOMS AND SIGNS [facility] 2020-02-29 11:00 ADVERSE EFFECT OF HORMONES AND [facility] SYNTHETIC SUBSTITUTES, INIT 2020-02-29 11:[address] [facility] STATUS 2020-02-29 11:00 BODY MASS INDEX [BMI] 37.0-37.9, [facility] ADULT 2020-02-29 11:00 LNG TRM (CRNT) USE OF AGNT AFF [facility] ESTROG RECPT ESTROG LEVELS 2020-02-29 11:00 HALFWAY (CURRENT) USE OF [facility] BISPHOSPHONATES 2020-02-29 11:00 OTHER HALFWAY (CURRENT) DRUG [facility] THERAPY 2020-02-29 11:00 PERSONAL HISTORY OF IRRADIATION [facility] 2020-03-25 08:37 MALIGNANT NEOPLASM OF PROSTATE [facility] 2020-03-25 08:37 PELVIC AND PERINEAL PAIN [facility] 2020-03-25 09:00 MALIGNANT NEOPLASM OF PROSTATE [facility] 2020-03-25 11:00 MALIGNANT NEOPLASM OF PROSTATE [facility] 2020-03-25 11:00 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 2020-03-25 11:00 OTHER GENERAL SYMPTOMS AND SIGNS [facility] 2020-03-25 11:00 ADVERSE EFFECT OF HORMONES AND [facility] SYNTHETIC SUBSTITUTES, INIT 2020-03-25 11:[address] 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 2020-05-30 13:00 CHRONIC FATIGUE, UNSPECIFIED [facility] 2020-05-30 13:00 OTHER GENERAL SYMPTOMS AND SIGNS [facility] 2020-05-30 13:00 ADVERSE EFFECT OF HORMONES AND [facility] SYNTHETIC SUBSTITUTES, INIT 2020-05-30 13:[address] 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 2020-05-30 15:00 CHRONIC FATIGUE, UNSPECIFIED [facility] 2020-05-30 15:00 OTHER GENERAL SYMPTOMS AND SIGNS [facility] 2020-05-30 15:00 ADVERSE EFFECT OF HORMONES AND [facility] SYNTHETIC SUBSTITUTES, INIT 2020-05-30 15:[address] 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 2020-05-30 15:00 OTHER METALWORKING INSTRUCTOR (CURRENT) DRUG [facility] THERAPY 2020-05-30 15:00 PERSONAL HISTORY OF IRRADIATION [facility] Allergies date description facility ADHESIVE \T\ TAPE [facility] CODEINE [facility]INS [facility] LATEX [facility] DOXYCYCLINE [facility] AZITHROMYCIN [facility] ER[facility]THROMYCIN [facility] No Known Drug Allergies [facility] No known allergies [facility] ACETAMINOPHEN [facility] ADHESIVE \T\ TAPE [facility] CORTISONE [facility]OFEN [facility] METHOCARBAMOL [facility] NAPROXEN [facility] NO KNOWN ENVIRONMENTAL ALLERGIES [facility] pollen [facility] LOVASTATIN [facility] No Known Medication Allergies [facility] NO ALLERGY INFORMATION AVAILABLE [facility] NSAIDS (NON-STEROIDAL ANTI-INFLAMMATORY DRUG) [facility] PENICILLINS [facility] SULFA (SULFONAMIDE ANTIBIOTICS) [facility] ADHESIVE [facility] LATEX, NATURAL RUBBER [facility] HYDROCORTISONE [facility] SULFASALAZINE [facility] DIPHENHYDRAMINE HCL [facility] FINASTERIDE [facility] AMOXICILLIN [facility] PROMETHAZINE [facility] DIPHENHYDRAMINE [facility] LOSARTAN [facility] ATORVASTATIN CALCIUM [facility] LISINOPRIL [facility] LATEX [facility] No Known Drug Allergies [facility] [place] ciprofloxacin [facility] metronidazole [facility] CEPHALEXIN [facility] Results Social History date description facility [id number]
== END 2020-05-26 09:48 | disposition home or self-care (01) ==
LOC: LAB 09:47
PROVIDERS: ATTEND Internal Medicine Hematology & Oncology
DX: Z53.9 Procedure and treatment not carried out, unspecified reason (principal); C61 Malignant neoplasm of prostate
CPT/HCPCS: 36415

== ENCOUNTER 2020-09-25 06:11 | Emergency (ER) | payer MEDICARE, OTHER ==
[2020-09-25 06:24] VITALS: BP 166/104
[2020-09-25] MEDS ORDERED: LIDOCAINE PATCH 5% TOP STA (06:31)
[2020-09-25] MEDS ORDERED: methocarbamoL 500 MG TABLET PO STA (06:31)
--- NOTE | 2020-09-25 06:32 | ED Physician Documentation ---
History of Present Illness - Stated complaint Stated Complaint: DIARRHEA/BACK SPASMS - Chief complaint Chief Complaint: Back Pain - History obtained from History obtained from: Patient - Additonal information Additional information: 75-year-old man presents this morning with right lower back strain. He states that he has had chronic back spasms for a few years but that it has been getting worse over the past couple of days, gradually. Right now it is localized to the right lower back and nonradiating, worse with twisting and bending, associated with sensation of muscle spasm compared to the left side, constant, aching. Patient denies saddle anesthesia, urinary or fecal incontinence. He does state that he alternates between constipation and diarrhea and has been following up with his primary doctor in regards to this.He is planning on outpatient colonoscopy. Review of Systems Skin: denies: Rash, Lesions Musculoskeletal: reports: Back pain. denies: Extremity pain Neurologic: denies: Focal weakness, Numbness PD PAST MEDICAL HISTORY - Past Medical History Past Medical History: Yes Cardiovascular: Hypertension, Murmur Respiratory: None Endocrine/Autoimmune: None GI: GERD : Other HEENT: None Psych: None Musculoskeletal: Chronic back pain Derm: None - Past Surgical History Past Surgical History: Yes General: EGD, Other HEENT: Tonsil/Adenoidectomy - Present Medications Home Medications: Ambulatory Orders Medication Instructions Recorded Confirmed Calcium Carbonate/Vitamin D3 1 tab PO DAILY 01/02/16 09/25/20 [Calcium 600-Vit D3 400 Tablet] Methocarbamol [Robaxin-750] 750 mg PO Q8H PRN #10 tablet 09/25/20 - Allergies Allergies/Adverse Reactions: Allergies Allergy/AdvReac Type Severity Reaction Status Date / Time No Known Drug Allergies Allergy Verified 09/25/20 06:23 - Social History Does the pt smoke?: No Smoking Status: Never smoker Does the pt drink ETOH?: No Does the pt have substance abuse?: No - Immunizations Immunizations are current?: Yes - POLST Patient has POLST: No POLST Status: Full Code PD ED PE NORMAL - Vitals Vital signs reviewed: Yes - General General: Alert and oriented X 3, No acute distress, Well developed/nourished - HEENT HEENT: Atraumatic, PERRL, EOMI - Neck Neck: Supple, no meningeal sign - Back Back: No CVA TTP, No spinal TTP, Other (R lower back discomfort to palpation. R lumbar lateral back muscles knotted and swollen compared to left.) - Derm Derm: Normal color, Warm and dry - Extremities Extremities: No deformity, Normal ROM s pain - Neuro Neuro: Alert and oriented X 3, No motor deficit, No sensory deficit - Psych Psych: Normal mood, Normal affect Results - Vitals Vitals: Vital Signs - 24 hr 09/25/20 06:15 Temperature 35.8 C L Heart Rate 62 Respiratory 18 Rate Blood Pressure 166/104 H O2 Saturation 97 Oxygen O2 Source Room air PD MEDICAL DECISION MAKING - ED course ED course: 75-year-old man presented with chronic low back pain that has acutely worsened over the past 2 days. He has palpable muscle spasm on the right lower back compared to the left. No focal weakness or numbness. No saddle anesthesia or urinary or fecal incontinence or retention.I offered a trigger point injection but he declined. Patient requested to have his muscle relaxer and lidocaine patch and then to go home to rest. Strict return precautions given. Patient will follow up with his primary doctor. Departure - Departure Disposition: 01 Home, Self Care Clinical Impression: Repetitive strain injury of lower back Condition: Good Instructions: ED Spasm Back No Trauma Follow-Up: Moe Yeh MD [Primary Care Provider] - Prescriptions: Methocarbamol [Robaxin-750] 750 mg PO Q8H PRN #10 tablet PRN Reason: Pain Comments: You are seen in the emergency department for right lower back strain. Try ice for 20 minutes every hour alternating with heat compresses for 20 minutes every hour. Do gentle stretching exercises but do not overstretch because that can cause muscle spasm more. Please return to the emergency department if you have any new or worsening symptoms or other concerns. Follow-up with your primary doctor
== END 2020-09-25 06:45 | disposition home or self-care (01) ==
LOC: ED 06:11
DX: S33.5XXA Sprain of ligaments of lumbar spine, initial encounter (principal); X50.3XXA Overexertion from repetitive movements, initial encounter; I10 Essential (primary) hypertension
CPT/HCPCS: 99282; 99284; A9270

== ENCOUNTER 2020-09-29 12:47 | Outpatient (CLI) | payer MEDICARE, OTHER ==
--- NOTE | 2020-09-29 15:00 | XRAY Report ---
PROCEDURE: Lumbar Spine 2 View INDICATIONS: CHRONIC LOW BACK PAIN TECHNIQUE: 2 views of the lumbar spine were acquired. COMPARISON: Lumbar spine radiographs 02/12/2018 FINDINGS: Bones: 5 [id number] vertebrae are present. There is mild levoconvex curvature of the lumbar spi ne. Mild grade 1 retrolisthesis of L3 on L4 is seen. Multilevel disc space narrowing and degenerative endplate changes are seen throughout the lumbar spine. Facet hypertrophy is seen at the L4-5 and L5- S1 levels. No vertebral body compression fractures. No suspicious bony lesions. Soft tissues: Overlying bowel gas pattern is normal. No suspicious soft tissue calcifications. IMPRESSION: No acute osseous abnormality. Multilevel moderate spondylosis has mildly progressed when compared to the radiographs from 02/12/2018. Reviewed by: Maurice Redding MD on 09/29/2020 2:59 PM PDT Approved by: Maurice Redding MD on 09/29/2020 2:59 PM PDT Station ID: [id number]
== END 2020-09-29 12:48 | disposition home or self-care (01) ==
LOC: DI 12:47
PROVIDERS: ATTEND Family Medicine
DX: M47.816 Spondylosis without myelopathy or radiculopathy, lumbar region (principal)

== ENCOUNTER 2020-11-07 09:19 | Day surgery (SDC) | payer MEDICARE, OTHER ==
[2020-11-07] MEDS ORDERED: LACTATED RINGERS 1,000 ML IV ONE ×2 (09:44→14:28)
--- NOTE | 2020-11-07 10:36 | ANESTHESIA ---
Pre-Anesthesia VS, & Labs - Diagnosis Screening exam - Procedure Colonoscopy Vital Signs: Temp Pulse Resp BP Pulse Ox 36.2 C L 89 20 150/96 H 97 11/07/20 09:29 11/07/20 09:29 11/07/20 09:29 11/07/20 09:29 11/07/20 09:29 Height: 5 ft 11 in Weight (kg): 119 kg Body Mass Index: 36.6 BMI Classification: Obese - NPO >8 hours Home Medications and Allergies Calcium Carbonate/Vitamin D3 [Calcium 600-Vit D3 400 Tablet] 1 tab PO DAILY 01/02/16 Enzalutamide [Xtandi] 160 mg PO DAILY 10/28/20 Potassium Gluconate 99 mg PO DAILY 11/04/20 Allergies/Adverse Reactions: Allergies Allergy/AdvReac Type Severity Reaction Status Date / Time No Known Drug Allergies Allergy Verified 10/28/20 15:11 Anes History & Medical History - Anesthetic History Anesthesia Complications: reports: No previous complications - Medical History Cardiovascular: reports: None Pulmonary: reports: None Gastrointestinal: reports: None Urinary: reports: None Neuro: reports: None Musculoskeletal: reports: None Endocrine/Autoimmune: reports: None Blood Disorders: reports: None Skin: reports: None Smoking Status: Former smoker (quit 25 years ago) Psychosocial: reports: No issues indicated History of Cancer?: Yes (prostate cancer s/p radiation and chemo) - Surgical History General: reports: Colonoscopy, EGD Eyes Ears Nose Throat (EENT): reports: Tonsil/Adenoidectomy Exam General: Alert, Oriented x3, Cooperative, No acute distress Dental: WNL Mouth Openin Fingerbreadth Neck Mobility: Normal Mallampati classification: III Mental/Cognitive Status: Alert/Oriented X3, Normal for patient Plan Anesthesia Type: General, Total IV Consent for Procedure(s) Verified and Reviewed: Yes Code Status: Attempt Resuscitation ASA classification: 3-Severe systemic disease Is this case an emergency?: No
[2020-11-07] MEDS ORDERED: PROPOFOL 1000 MG/100 ML 1,000 MG/100 ML BOTTLE IV ONE (13:15)
[2020-11-07 15:20] VITALS: BP 199/77
--- NOTE | 2020-11-07 18:04 | ANESTHESIA POST OP EVALUATION ---
Anesthesia Post Eval - Post Anesthesia Eval Vitals: Last Vital Signs Temp 36.5 C 11/07/20 15:05 Pulse 78 11/07/20 15:05 Resp 18 11/07/20 15:05 BP 199/77 H 11/07/20 15:05 Pulse Ox 98 11/07/20 15:05 CV Function Including HR & BP: Stable Pain Control: Satisfactory Nausea & Vomiting: Negative Mental Status: Baseline Respiratory Status: Airway Patent Hydration Status: Satisfactory Anesthesia Complications: None
== END 2020-11-07 09:20 | disposition home or self-care (01) ==
LOC: SDS 09:19
PROVIDERS: ATTEND Surgery
DX: K57.30 Diverticulosis of large intestine without perforation or abscess without bleeding (principal); Z86.010 Personal history of colon polyps; K21.9 Gastro-esophageal reflux disease without esophagitis; G89.29 Other chronic pain; M54.5 Low back pain; K64.8 Other hemorrhoids; Z80.0 Family history of malignant neoplasm of digestive organs; Z68.36 Body mass index [BMI] 36.0-36.9, adult; E66.9 Obesity, unspecified; Z87.891 Personal history of nicotine dependence; Z85.46 Personal history of malignant neoplasm of prostate; Z92.3 Personal history of irradiation; Z92.21 Personal history of antineoplastic chemotherapy
CPT/HCPCS: 45378; J7120

== ENCOUNTER 2022-08-20 08:00 | Outpatient (CLI) | payer MEDICARE, OTHER | END 2022-08-20 23:59 | disposition home or self-care (01) | LOC: LAB 08:00 | PROVIDERS: ATTEND Physician Assistant Medical | DX: R30.0 Dysuria (principal); R31.9 Hematuria, unspecified | CPT/HCPCS: 87086 ==

== ENCOUNTER 2023-01-03 21:44 | Emergency (ER) | payer MEDICARE, OTHER ==
[2023-01-03] MEDS ORDERED: HYDROcod/ACETAM 5/325 MG TABLET PO STA (21:57)
--- NOTE | 2023-01-03 21:59 | ED Physician Documentation ---
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 Currently on leuprolide and Xtandi, but previously received radiation therapy to the metastatic site in his pelvis about 6 years ago. About a week ago he hurt his back. Its in the low back. He is not sure exactly how he hurt it, but he may have hurt it while installing a TV. Pain is worse if he moves or twists. He denies weakness, incontinence, or fevers. He thought he may have some numbness in the right leg. He has tried numerous [id number] medications without relief. PD PAST MEDICAL HISTORY - Past Medical History Cardiovascular: None Respiratory: None Neuro: None Endocrine/Autoimmune: None GI: GERD : None HEENT: None Psych: None Musculoskeletal: Chronic back pain Derm: None - Past Surgical History Past Surgical History: Yes General: EGD, Other HEENT: Tonsil/Adenoidectomy - Present Medications Home Medications: Ambulatory Orders Medication Instructions Recorded Confirmed Calcium Carbonate/Vitamin D3 2 tab PO DAILY 01/02/16 01/03/23 [Calcium 600-Vit D3 400 Tablet] Enzalutamide [Xtandi] 160 mg PO DAILY 10/28/20 01/03/23 Potassium Gluconate 99 mg PO DAILY 11/04/20 01/03/23 Cholecalciferol (Vitamin D3) 5,000 unit PO DAILY 10/08/22 01/03/23 [Vitamin D3] Vitamin B Complex 1 each PO DAILY 10/08/22 01/03/23 Leuprolide [Lupron] See Rx Instructions .ROUTE .COMPLEX 01/03/23 01/03/23 - Allergies Allergies/Adverse Reactions: Allergies Allergy/AdvReac Type Severity Reaction Status Date / Time No Known Drug Allergies Allergy Verified 01/03/23 21:47 - Social History Does the pt smoke?: No Smoking Status: Former smoker (quit 25 years ago) Does the pt drink ETOH?: No Does the pt have substance abuse?: No - Immunizations Immunizations are current?: Yes - POLST Patient has POLST: No POLST Status: Full Code PD ED PE NORMAL - Vitals Vital signs reviewed: Yes - General General: Alert and oriented X 3, Other (Comfortable at rest, winces with motion) - Abdomen Abdomen: Non tender - Back Back: No spinal TTP, Other (The patient has equal and normal Achilles and patellar reflexes bilaterally. Normal sensation in all areas of the legs. Patient denies saddle anesthesia. Normal strength in flexion-extension at the ankles, knees, and flexion of the hips.) - Neuro Neuro: Alert and oriented X 3, Normal speech Results - Vitals Vitals: Vital Signs - 24 hr 01/03/23 21:47 Temperature 36.5 C Heart Rate 66 Respiratory 18 Rate Blood Pressure 150/90 H O2 Saturation 96 Oxygen O2 Source Room air PD Medical Decision Making - ED course ED course: 77-year-old gentleman with acute low back pain. Seems musculoskeletal, no concerning neurologic findings that would suggest cauda equina etc. That said he does have a history of prostate cancer with a single met in the pelvis a few years ago, there are no other bony mets but he has not been imaged recently. Given this history it seems prudent to perform CT imaging to rule out bony metastatic disease. He was administered hydrocodone here. Care to Dr. Horton at 11 PM shift change pending CT results. Departure - Departure Clinical Impression: Prostate cancer metastatic to bone Low back pain Qualifiers: Chronicity: acute Back pain laterality: bilateral Sciatica presence: without sciatica Qualified Code(s): M54.50 - Low back pain, unspecified Condition: Good Record reviewed to determine appropriate education?: Yes Instructions: ED Low Back Pain Injury
--- NOTE | 2023-01-03 23:39 | ED Physician Documentation ---
ED Addendum - Addendum Addendum: 01/03/23 23:37 Patient endorsed to me by Dr. Cuevas at 11pm shift change pending CT L spine results. Wet read concerning for metastatic disease and patient is aware he will need to f/u with oncologist. Patient in NAD, pain well controlled with oral analgesia. Rx sent to pharmacy. Return precautions given. Disposition home Condition stable Impression 1. metastatic disease 2. low back pain 01/04/23 00:47
--- NOTE | 2023-01-04 00:49 | CT Report ---
PROCEDURE: LUMBAR SPINE WO INDICATIONS: Back pain, history of prostate CA with mets TECHNIQUE: Noncontrast 3 mm thick sections acquired from the T12 level to the sacrum. Sagittal and coronal refo rmats were constructed. For radiation dose reduction, the following was used: automated exposure co ntrol, adjustment of mA and/or kV according to patient size. COMPARISON: Lumbar spine x-ray 09/29/2020. Bone scan 03/25/2020. CT abdomen pelvis 03/25/2020. FINDINGS: Image quality: Excellent. Bones: There is minimal retrolisthesis redemonstrated at L3-L4. No definite fracture or subluxation. Specifically, no acute vertebral body compression fractures. Central spinal caliber is of normal ov erall caliber. No pars defects. There are 2 small sclerotic foci redemonstrated within the L4 verte bral body which appear unchanged from the prior CT and likely represent bone islands. No definite leyla picious osseous lesions. T12-L1: No spinal canal or neuroforaminal narrowing. L1-L2: No spinal canal or neuroforaminal narrowing. L2-L3: Small broad-based disc bulge with mild facet arthropathy. There is mild spinal canal narrowing with mild to moderate right and mild left neuroforaminal narrowing. L3-L4: Small broad-based disc bulge with mild facet arthropathy and ligamentum flavum hypertrophy. Th ere is mild spinal canal narrowing with mild to moderate bilateral neuroforaminal narrowing. L4-L5: Small broad-based disc bulge with mild facet arthropathy. There is a small superior endplate S chmorl's node within the L4 vertebral body. There is minimal spinal canal narrowing with mild to mode rate left and mild right neuroforaminal narrowing. L5-S1: Small disc bulge. No spinal canal or neuroforaminal narrowing. Soft tissues: No retroperitoneal masses or hematomas. Visualized aorta is normal in caliber. There are multiple right renal cysts. IMPRESSION: 1. No definite evidence of osseous metastatic disease. 2. Multilevel degenerative changes throughout the lumbar spine without high-grade spinal canal or amandeep roforaminal narrowing. 3. Small sclerotic foci redemonstrated within the L4 vertebral body likely representing bone islands. Reviewed by: Harish Newberry MD on 01/04/2023 12:47 AM PDT Approved by: Harish Newberry MD on 01/04/2023 12:47 AM PDT Station ID: [id number]
[2023-01-04 00:55] VITALS: BP 152/83; O2SAT 97
== END 2023-01-04 00:55 | disposition home or self-care (01) ==
LOC: ED 21:44
DX: M54.50 Low back pain, unspecified (principal); C61 Malignant neoplasm of prostate; Z87.891 Personal history of nicotine dependence
CPT/HCPCS: 72131; 99284; A9270

== ENCOUNTER 2023-05-15 07:57 | Outpatient (CLI) | payer MEDICARE, OTHER ==
[2023-05-15 08:34] LABS: BASOPHILS # (AUTO) 0.1 10^3/uL (0.0-0.1); EOSINOPHILS # (AUTO) 0.2 10^3/uL (0.0-0.7); EOSINOPHILS % (AUTO) 3.2 %; HGB - HEMOGLOBIN 15.1 g/dL (14.0-18.0); LYMPHOCYTES # (AUTO) 2.2 10^3/uL (1.5-3.5); LYMPHOCYTES % (AUTO) 37.5 %; MEAN CORPUSCULAR HEMOGLOBIN 28.4 pg (27.0-31.0); MEAN CORPUSCULAR HGB CONC 32.1 g/dL (32.0-36.0); MEAN CORPUSCULAR VOLUME 88.5 fL (80.0-94.0); MEAN PLATELET VOLUME 10.3 fL (7.4-11.4); MONOCYTES # (AUTO) 0.5 10^3/uL (0.0-1.0); MONOCYTES % (AUTO) 9.2 %; NEUTROPHILS # (AUTO) 2.9 10^3/uL (1.5-6.6); NEUTROPHILS % (AUTO) 48.9 %; PLT - PLATELET COUNT 262 10^3/uL (130-450); RED BLOOD COUNT 5.31 10^6/uL (4.70-6.10); RED CELL DISTRIBUTION WIDTH 13.5 % (12.0-15.0); WHITE BLOOD COUNT 5.9 x10^3/uL (4.8-10.8)
[2023-05-15 08:36] LABS: BILIRUBIN,URINE NEGATIVE (NEGATIVE); GLUCOSE, URINE (UA) NEGATIVE (NEGATIVE); KETONES,URINE (UA) NEGATIVE (NEGATIVE); LEUKOCYTE ESTERASE, URINE SMALL (NEGATIVE); NITRITE,URINE NEGATIVE (NEGATIVE); OCCULT BLOOD,URINE TRACE-INTA (NEGATIVE); PROTEIN,URINE NEGATIVE (NEGATIVE); UROBILINOGEN,URINE 0.2 (NORMAL) E.U./dL (NORMAL)
[2023-05-15 08:42] LABS: ALBUMIN 3.8 g/dL (3.2-5.5); ALBUMIN/GLOBULIN RATIO 1.3 (1.0-2.2); BILIRUBIN,TOTAL 0.5 mg/dL (0.2-1.0); POTASSIUM 3.8 mmol/L (3.5-4.5); TOTAL PROTEIN 6.8 g/dL (6.4-8.9)
[2023-05-15 08:46] LABS: BACTERIA,URINE Rare /HPF (None Seen); CLARITY,URINE CLEAR (CLEAR); MUCUS,URINE Few Strands; RBC,URINE 0-5 /HPF (0-5); SQUAMOUS EPITHELIAL CELL,UR NONE SEEN (<= Few)
== END 2023-05-15 07:58 | disposition home or self-care (01) ==
LOC: LAB 07:57
PROVIDERS: ATTEND Nurse Practitioner
DX: R10.11 Right upper quadrant pain (principal)
CPT/HCPCS: 36415; 80053; 81001; 82150; 83690; 85025; 87086

== ENCOUNTER 2023-05-19 13:05 | Outpatient (CLI) | payer MEDICARE, OTHER ==
--- NOTE | 2023-05-19 20:01 | Ultrasound Report ---
PROCEDURE: Abdomen Complete INDICATIONS: ABD PAIN TECHNIQUE: Real-time scanning was performed of the abdominal and retroperitoneal organs, with image documentatio n. COMPARISON: Abdominal ultrasound on August 31, 2019. CT abdomen and pelvis on March 25, 2020. FINDINGS: Evaluation is limited secondary to bowel gas artifact. Liver: Liver is normal in size and homogeneous in echotexture. Main portal vein is patent with hepat opedal flow. Gallbladder: Trace sludge is better seen on prior CT. Normal gallbladder wall thickness measuring 2 m m (remeasured). No pericholecystic fluid. Biliary ducts: Intrahepatic bile ducts are non-dilated. Extrahepatic bile duct caliber measures 3 m m. Normal is 6-7 mm or less in diameter, or 10 mm or less post-cholecystectomy. Pancreas: Not well seen secondary to bowel gas. Spleen: Spleen is normal in size and homogeneous in echotexture. Kidneys: Kidneys are normal in size and echotexture. Right kidney measures 11 cm long; left kidney measures 9.7 cm long. No hydronephrosis or nephrolithiasis. No solid masses. Right interpolar anech oic simple cyst measuring 2.7 x 2.8 x 3 cm, stable. No complex renal cystic lesions which require fol low-up. Aorta: Visualized aorta is normal in caliber at less than 3 cm. Iliacs: Proximal common iliac arteries are normal in caliber at less than 2.5 cm. IVC: Intrahepatic inferior vena cava is patent. Miscellaneous: No free abdominal fluid. IMPRESSION: Evaluation is limited secondary to bowel gas artifact. 1.Gallbladder sludge is better seen on prior CT. No sonographic evidence of cholecystitis. No biliary ductal dilatation. 2.Pancreas is not well seen secondary to bowel gas. 3.Stable right renal cyst. No hydronephrosis. Reviewed by: Cinthya Mitchell MD on 05/19/2023 7:59 PM PST Approved by: Cinthya Mitchell MD on 05/19/2023 7:59 PM PST Station ID: [id number]
== END 2023-05-19 13:06 | disposition home or self-care (01) ==
LOC: DI 13:05
PROVIDERS: ATTEND Nurse Practitioner
DX: R10.11 Right upper quadrant pain (principal); N28.1 Cyst of kidney, acquired

== ENCOUNTER 2023-07-11 10:28 | Outpatient (CLI) | payer MEDICARE, OTHER ==
[2023-07-11] MEDS ORDERED: DIATRIZOATE MEGLU/DIATRIZO SOD 30 ML BOTTLE PO ONE (10:34)
[2023-07-11] MEDS ORDERED: iohexoL-300 100 ML VIAL ONE (10:34)
--- NOTE | 2023-07-11 14:03 | CT Report ---
PROCEDURE: Abdomen/Pelvis W INDICATIONS: BILIARY COLIC CONTRAST: Omni 300 100ml TECHNIQUE: After the administration of intravenous contrast, a CT scan of the abdomen and pelvis was performed. Images were recorded and evaluated at appropriate window settings. Reformats: coronal and sagittal. F or radiation dose reduction, the following was used: automated exposure control, adjustment of mA and /or kV according to patient size. COMPARISON: Ultrasound 05/19/2023. FINDINGS: Image quality: Diagnostic. Lower chest: Unremarkable. Liver: No solid mass. Gallbladder and biliary tree: Cholelithiasis without wall thickening. No biliary dilation. Spleen: No splenomegaly. Pancreas: No pancreatic ductal dilation. Adrenals: No adrenal nodule. Kidneys and ureters: No hydronephrosis. No renal cystic lesion which requires follow up. No solid mas s. Stomach, bowel and peritoneum: No bowel distension. No pathologic free fluid. Diverticulosis without evidence of diverticulitis. Lymph nodes: No central or retroperitoneal adenopathy. Vessels: No infrarenal aortic aneurysm. PELVIS Reproductive organs: Prostate fiducial markers. Bladder: No abnormal wall thickening, accounting for underdistention. Pelvic lymph nodes: No pelvic adenopathy by size criteria. Bones: No aggressive osseous abnormality. Prominent Schmorl's nodes in the superior endplates of L2 a nd L4. Other: No significant ventral or inguinal hernia. IMPRESSION: Cholelithiasis without evidence of acute cholecystitis. Reviewed by: Prudencio Jaquez MD on 07/11/2023 2:01 PM PST Approved by: Prudencio Jaquez MD on 07/11/2023 2:01 PM PST Station ID: [id number]
[2023-07-11] MEDS: iohexoL-300 100 ML VIAL IVP ONE (15:40)
[2023-07-11] MEDS: DIATRIZOATE MEGLU/DIATRIZO SOD 30 ML BOTTLE PO ONE (15:40)
== END 2023-07-11 10:29 | disposition home or self-care (01) ==
LOC: DI 10:28
PROVIDERS: ATTEND Emergency Medicine
DX: K80.20 Calculus of gallbladder without cholecystitis without obstruction (principal); D48.9 Neoplasm of uncertain behavior, unspecified
CPT/HCPCS: 74177; Q9963; Q9967